=== PATIENT | female | born 1940 | race Caucasian/White ===

== ENCOUNTER → 2018-06-21 | Outpatient (CLI) | payer MEDICARE, OTHER, SELFPAY ==
[2018-03-29 15:36] VITALS: BMI 24.5
--- NOTE | 2018-06-21 14:58 | BI_ITS ---
MAMMOGRAPHY - BILATERAL SCREENING REASON FOR EXAM: Female, 77 years old. Routine annual screening examination. PERTINENT HISTORY: Grandmother with breast cancer. TECHNIQUE: Digital bilateral breast christiano (3D mammographic acquisition) in the CC and MLO projections. 2-D mediolateral oblique (MLO) and craniocaudad (CC) views of both breasts were obtained. CAD: Full Field Digital Mammography with Computer Added Detection was performed. COMPARISON: Comparison is made with prior examination dated January 20, 2017 the and December 18, 2015. FINDINGS: Breast Composition: There are scattered areas of fibroglandular density. There now is evidence of a 1.3 cm x 1.3 cm spiculated nodule in the mid medial portion of the left breast. Correlation with ultrasound is recommended. No other significant abnormalities are identified. BI/SCREENING MAMM (CAD), BILAT IMPRESSION: 1.3 cm x 1.3 cm spiculated nodule in the mid medial portion of the left breast as described. Correlation with ultrasound is recommended. ASSESSMENT CATEGORY: BIRADS Category 0: Incomplete. Need additional imaging evaluation. A letter regarding these results will be sent to the patient by the facility within 30 days. Approximately 10% of breast cancers are not detected by mammography. A normal mammogram should not delay biopsy of a clinically suspicious abnormality. [id number] Electronically Signed: Anthony Ashton, at 11:26 EDT , Service support ,
== END | disposition home or self-care (01) ==
LOC: OPBI 14:54
PROVIDERS: Family Provider Internal Medicine; PCP Internal Medicine; Referring Provider Nurse Practitioner Women's Health; Visit Provider Nurse Practitioner Women's Health
DX: Z12.31 Encounter for screening mammogram for malignant neoplasm of breast (principal)
CPT/HCPCS: 77063; 77067

== ENCOUNTER → 2018-06-23 | Outpatient (CLI) | payer MEDICARE, OTHER, SELFPAY ==
[2018-03-29 15:36] VITALS: BMI 24.5
--- NOTE | 2018-06-23 12:24 | US_ITS ---
STUDY: ULTRASOUND BREAST - LEFT REASON FOR EXAM: Female, 77 years old. Abnormal screening mammogram. TECHNIQUE: Axial and longitudinal images of the LEFT breast were performed with a high resolution ultrasound transducer. COMPARISON: Comparison is made with prior mammogram dated June 21, 2018. FINDINGS: LEFT Breast: The mammographic abnormality corresponds to a 9 mm x 8 mm x 6 mm irregular hypoechoic solid nodule at the 10:00 position of the breast at 3 cm from the nipple. A biopsy is recommended. US/Breast Limited Unilateral IMPRESSION: Suspicious nodule at the 10:00 position of the breast at 3 cm from the nipple. Biopsy is recommended. ASSESSMENT CATEGORY: BIRADS Category 5: Highly Suggestive of Malignancy - Appropriate Action Should Be Taken. A letter regarding these results will be sent to the patient by the facility within 30 days. Electronically Signed: Anthony Ashton, at 14:03 EDT , Service support ,
== END | disposition home or self-care (01) ==
LOC: OPUS 12:23
PROVIDERS: Family Provider Internal Medicine; PCP Internal Medicine; Referring Provider Nurse Practitioner Women's Health; Visit Provider Nurse Practitioner Women's Health
DX: R92.8 Other abnormal and inconclusive findings on diagnostic imaging of breast (principal); N63.20 Unspecified lump in the left breast, unspecified quadrant
CPT/HCPCS: 76642

== ENCOUNTER → 2018-06-24 | Outpatient (CLI) | payer MEDICARE, OTHER, SELFPAY ==
--- NOTE | 2018-06-24 | IMM_PTH ---
PATIENT: JORDAN LAMBERT LOC: [facility] U#:[id number] AGE/SX: 77/F ROOM: RE06/24/[address]: Dr. Rahul Tucker MD : 1940 BED: DIS: 06/24/2018 SPEC #: [id number] RECD: 06/25/18 13:03 STATUS: TI RENed #: [id number] EDIN: 06/24/18 00:[address]: Rahul Tucker DEPT: IMMUNOHISTOCHEMISTRY RECD BY: Rosa Simms ENTERED: 06/25/18 13:04 SP TYPE: IMMUNO OTHR DR: Dr. Eloise Palma MD Tissues: Left breast, NOS Procedures: CALPONIN-1 (add) CK5-6 (add) CK8 (add) E-CAD (add) HER2 MAT (add) KI-67 (add) P53 (add) TX (add) P40 (add) ER (initial) PHYSICIAN & INSTITUTION [address] [address] SPECIMEN INFORMATION: Tissue Source: Left breast biopsy Clinical Info: Abnormal left breast ultrasound Specimen Number: [id number] CPT code: 98486, 44731 x6, 91495 x3 METHODOLOGY: Deparaffinized sections of prefer/formalin-fixed tissue or PAP/DQ stained slides are incubated with monoclonal/polyclonal antibodies/oligonucleotide probes. Localization is made via biotin free immunoperoxidase method. Appropriate controls are performed and reacted as expected. Results on target cell population are indicated in the following table: RESULTS: ANTIBODY / CLONE RESULT E-Cad (ECH-6) positive CK8 (16dfqnP77) positive CK5-6 (D5 & 1684) negative * Ki-67 (30-9) positive, low P53 (DO-7) positive P40 (BC28) negative * Calponin-1 (NA952M) negative * *?Positive in ductal carcinoma in situ. MORPHOMETRIC ANALYSIS ER (clone 6F11) >95%, strong TX (clone 16/1E2) 51%, weak to moderate Her-2Neu (clone CB11) 0-1+ The prognostic test for HER2 is performed on formalin-fixed paraffin embedded tissue. A 3+ (positive) staining pattern is defined as intense, homogeneous, complete, circumferential membranous staining in >10% of contiguous tumor cells. A similar weak (2+) staining pattern is interpreted as equivocal. ALEX follow-up testing is recommended for all equivocal cases. Positivity/negativity for ER/TX is reported if > or < 1% of the tumor cells are immuno- reactive, respectively. The ASCO/CAP criteria is used for scoring. Reference: Journal of Clinical Oncology, 2013; 31:1211-5860 & 2010; 16:4379-7160. Duration of fixation: 10.5 Hrs; Sample Adequate: Yes. These assays have not been validated on decalcified tissues. Results should be interpreted with caution given the likelihood of false negativity on decalcified specimens. These tests were developed and their performance characteristics determined by [facility]. They may not have been cleared or approved by the U.S. Food and Drug Administration. The FDA has determined that such clearance or approval is not necessary. INTERPRETATION: Left breast, core biopsy: Invasive ductal carcinoma, nuclear grade 1. Positive for estrogen receptors (favorable prognostic indicator). Positive for progesterone receptors (favorable prognostic indicator). Negative for overexpression of TVQ7agk. SJ:marcus 06/28/18
[2018-06-24 08:50] VITALS: BMI 24.5
--- NOTE | 2018-06-24 09:00 | BRBX_PTH ---
PATIENT: JORDAN LAMBERT LOC: [facility] U#:[id number] AGE/SX: 77/F ROOM: RE06/24/[address]: Dr. Rahul Tucker MD : 1940 BED: DIS: 06/24/2018 SPEC #: [id number] RECD: 06/24/18 10:04 STATUS: TI MICHELLE #: [id number] EDIN: 06/24/18 09:[address]: Rahul Tucker DEPT: SURGICAL PATHOLOGY RECD BY: Jimmie Vides ENTERED: 06/24/18 11:28 SP TYPE: BREAST BX OTHR DR: MD Tosha Duran, HENRIQUE Tissues: Left breast, NOS Procedures: Surgery Specimen Level IV HEADER OPERATION: Left breast biopsy PRE-OP DIAGNOSIS: Abnormal left breast ultrasound TISSUE SUBMITTED: Left breast tissue ISCHEMIC TIME: <1 minute FIXATION TIME: 10.5 hours MICROSCOPIC DIAGNOSIS Left breast, core biopsy: Invasive ductal carcinoma, nuclear grade 1 (0.7 cm in greatest length). Focal ductal carcinoma in situ. See comment. DIEGO:marcus 06/25/18 COMMENT Ductal carcinoma in situ shows cribriform and solid pattern, intermediate nuclear grade and focal comedo necrosis and comprise about 5-10% of the total tumor volume. Immunohistochemistry ([id number]) supports the above diagnosis. ER/NV/Axi4zdx studies are being performed on sections of tumor and the results from this study will be reported separately ([id number]). MICROSCOPIC DESCRIPTION Slides are reviewed. GROSS DESCRIPTION Received in fixative is one container labeled with the patient's name and designated left breast biopsy. The specimen consists of multiple elongated fragments of jacinto-yellow hemorrhagic tissue that in aggregate measure 1.5 x 0.3 x 0.1 cm. The entire specimen is submitted in one cassette. / DIEGO:amrcus 06/24/18 TC:0 CPT: 66101
== END | disposition home or self-care (01) ==
LOC: LABSPEC 10:10
PROVIDERS: Family Provider Internal Medicine; PCP Internal Medicine; Referring Provider Surgery; Visit Provider Surgery
DX: C50.912 Malignant neoplasm of unspecified site of left female breast (principal)
CPT/HCPCS: 88305; 88341; 88342

== ENCOUNTER 2018-07-08 08:17 | Day surgery (SDC) | payer MEDICARE, OTHER, SELFPAY ==
--- NOTE | 2018-06-24 10:11 | HP_ITS ---
Intake Vital Signs 06/24/18 Body Mass Index (BMI) 24.5 06/24/18 Height 5 ft 2 in 06/24/18 Weight: 135 lb 06/24/18 Body Mass Index (BMI) 24.7 06/24/18 Blood Pressure 168/78 H 06/24/18 Blood Pressure Location Rt brachial 06/24/18 Blood Pressure Position Sitting 06/24/18 Respiratory Rate 18 06/24/18 Pulse Rate 85 06/24/18 Pulse Source Monitor 06/24/18 Temperature 98.3 F 06/24/18 Temperature Source Oral 06/24/18 Pulse Ox 96 06/24/18 Oxygen Delivery Method room air Intake Visit Reasons: Lt Breast Birads 5 Hooker Machine Tender Required: No Is patient in pain?: No Allergies adhesive tape Allergy (Severe, Verified 06/24/18 08:49) Unknown baclofen Allergy (Severe, Verified 06/24/18 08:49) Unknown codeine Allergy (Severe, Verified 06/24/18 08:49) Unknown morphine Allergy (Severe, Verified 06/24/18 08:49) Unknown Penicillins Allergy (Severe, Verified 06/24/18 08:49) Unknown Medications coenzyme Q10 30 mg capsule 30 mg PO QDAY 05/12/17 [History Confirmed 06/24/18] dextran 70-hypromellose (PF) 0.1 %-0.3 % eye drops in a dropperette 1 drp OPHTHALMIC 6XD ea 05/12/17 [History Confirmed 06/24/18] diltiazem ER 180 mg capsule,24 hr,extended release 180 mg PO QDAY cap 05/12/17 [History Confirmed 06/24/18] flaxseed oil 1,000 mg capsule 1,000 mg PO QDAY 05/12/17 [History Confirmed 06/24/18] rosuvastatin 10 mg tablet 10 mg PO QDAY 05/12/17 [History Confirmed 06/24/18] epinephrine 0.3 mg/0.3 mL injection, auto-injector 0.3 mg IM ONCE #1 ea 08/13/17 [Rx Confirmed 06/24/18] prednisone 5 mg tablet See Rx Instructions PO DAILY #20 tab 12/24/17 [Rx Confirmed 06/24/18] PFSH Medical History Abnormal mammogram of left breast (Acute) Abnormal mammogram of left breast (Acute) Anxiety (Acute) Arthritis (Acute) Asthma (Acute) High cholesterol (Acute) Hives (Acute) IBS (irritable bowel syndrome) (Acute) Osteoarthritis (Acute) Pneumonia (Acute) Skin cancer (Acute) HTN (hypertension) (Chronic) Surgical History Status post bilateral total hip replacement (Acute) Family History Father Colon cancer Mother Cancer Melanoma ALS (amyotrophic lateral sclerosis) Social History Smoking Status: Never smoker second hand exposure: No alcohol intake: never substance use type: does not use HPI HPI HPI: JORDAN LAMBERT, is a 77 F who presents to the office today for HPI HPI Surgical H&P: Yes HPI: JORDAN LAMBERT, is a 77 F who presents to the office today for surgical consultation regarding a abnormal left breast mammogram and ultrasound 77-year-old female. G3, . Menarche was at age 15. First child was born when she was 20. She did not breast-feed. No history of previous breast biopsy. She has not been on estrogen replacement therapy but she does use as needed Vagifem. Family history notable for a paternal grandmother had breast cancer. The patient has not had any symptoms. No breast pain. No nipple discharge. At the [facility] on June 21, 2018 she had screening bilateral mammography. There is felt to be a 1.3 x 1.3 cm spiculated nodule mid medial portion of the left breast. BI-RADS Category 0. Subsequently on June 23, 2018 a left breast ultrasound was obtained. BI-RADS Category 5. A 9 x 8 x 6 mm hypoechoic solid nodule 10 o'clock position +3 cm left breast. The patient is been kindly evaluated by Tosha Abdi, SARKIS?C. She is referred for surgical consultation and a written surgical consult with recommendations will be returned to her. [facility] Imaging Services [address] [place] [address] SCREENING MAMM (CAD), BILAT MR#: [id number] Name: JORDAN LAMBERT [facility] #:[id number] : 1940 77 From: Anthony Ashton MD PCP:Eloise Palma MD Status:REG CLI Study:SCREENING MAMM (CAD), BILAT Date of Exam:06/21/18 Exam#[id number] Ordering Dr: Tosha Abdi STAPLE FIBER WASHER-Jorge MAMMOGRAPHY - BILATERAL SCREENING REASON FOR EXAM: Female, 77 years old. Routine annual screening examination. PERTINENT HISTORY: Grandmother with breast cancer. TECHNIQUE: Digital bilateral breast christiano (3D mammographic acquisition) in the CC and MLO projections. 2-D mediolateral oblique (MLO) and craniocaudad (CC) views of both breasts were obtained. CAD: Full Field Digital Mammography with Computer Added Detection was performed. COMPARISON: Comparison is made with prior examination dated January 20, 2017 the and December 18, 2015. FINDINGS: Breast Composition: There are scattered areas of fibroglandular density. There now is evidence of a 1.3 cm x 1.3 cm spiculated nodule in the mid medial portion of the left breast. Correlation with ultrasound is recommended. No other significant abnormalities are identified. BI/SCREENING MAMM (CAD), BILAT IMPRESSION: 1.3 cm x 1.3 cm spiculated nodule in the mid medial portion of the left breast as described. Correlation with ultrasound is recommended. ASSESSMENT CATEGORY: BIRADS Category 0: Incomplete. Need additional imaging evaluation. A letter regarding these results will be sent to the patient by the facility within 30 days. Approximately 10% of breast cancers are not detected by mammography. A normal mammogram should not delay biopsy of a clinically suspicious abnormality. [id number] Electronically Signed: Anthony Ashton, at 11:26 EDT , Service support , [facility] Imaging Services [address] [place] [id number] Breast Limited Unilateral MR#: [id number] Name: JORDAN LAMBERT [facility] #:[id number] : 1940 77 From: Anthony Ashton MD PCP:Eloise Palma MD Status:REG CLI Study:Breast Limited Unilateral Date of Exam:06/23/18 Exam#[id number] Ordering Dr: Tosha Abdi STAPLE FIBER WASHER-C STUDY: ULTRASOUND BREAST - LEFT REASON FOR EXAM: Female, 77 years old. Abnormal screening mammogram. TECHNIQUE: Axial and longitudinal images of the LEFT breast were performed with a high resolution ultrasound transducer. COMPARISON: Comparison is made with prior mammogram dated June 21, 2018. FINDINGS: LEFT Breast: The mammographic abnormality corresponds to a 9 mm x 8 mm x 6 mm irregular hypoechoic solid nodule at the 10:00 position of the breast at 3 cm from the nipple. A biopsy is recommended. US/Breast Limited Unilateral IMPRESSION: Suspicious nodule at the 10:00 position of the breast at 3 cm from the nipple. Biopsy is recommended. ASSESSMENT CATEGORY: BIRADS Category 5: Highly Suggestive of Malignancy - Appropriate Action Should Be Taken. A letter regarding these results will be sent to the patient by the facility within 30 days. Electronically Signed: Anthony Ashton, at 14:03 EDT , Service support , ROS General General: No weight change, appetite, fatigue, colon cancer, breast cancer or weakness HEENT HEENT: Yes eye surgery; no difficulty swallowing, eye injury, swollen glands or hoarseness Endo Endocrine: No thyroid disease, diabetes mellitus, thyroid cancer, Hair loss, heat intolerance or cold intolerance Skin Skin: No rash or changing moles Breast Breast: Yes abnormal mammogram and abnormal US; no left breast lump, right breast lump, nipple discharge, breast pain or breast enlargement Musc Musculoskeletal: Yes arthritis; no back problems, rheumatoid arthritis, gout or joint pain Cardio Cardiovascular: Yes high blood pressure; no murmur, pacemaker, heart disease, atrial fibrillation, heart attack, heart stent, palpitations, shortness of breat with exertion or chest pain Psych Psychiatric: No depression, anxiety or hearing voices Resp Respiratory: No shortness of breath, No sleep apnea, No cough, No COPD, Yes asthma, No emphysema, No wheezing Gastro Gastrointestinal: No abdominal pain, No nausea or vomiting, No diarrhea, No constipation, No blood in stool, Yes acid reflux, Yes hemorrhoids, No ulcers, No gallbladder problem, No black,tarry stools Ghulam Hematologic: No blood thinners, No blood disorders, No bleeding, No anemia, No blood clots Neuro Neurologic: No system reviewed and no additional complaints, except as docu, No as per HPI, No abnormal walking, No abnormal hearing, No abnormal movements, No abnormal speech, No behavioral changes, No burning sensations, No confusion, No seizure-like activity, No unsteadiness, No dizziness, No localized weakness, No frequent falls, No headache(s), No lack of coordination, No loss of vision, No memory loss, No numbness, No other visual disturbances, No radiating pain, No restless legs, No sensory deficit, No fainting, No tingling, No tremor(s), No weakness, No other Exam Const General: cooperative, healthy appearing, comfortable, no acute distress Nutritional Appearance: overweight Orientation: alert, awake [facility] Head: normal to inspection Eyes General: appearance normal, both eyes and all related structures Chest Breast Palpation: No nipple discharge Other: Right breast: No focal mass. No nipple discharge. No axillary or clavicular adenopathy Left breast: No focal mass. No nipple discharge. No focal mass. No axillary or clavicular adenopathy Resp Effort & Inspection: normal respiratory effort Auscultation: clear to auscultation bilaterally Cardio Rate: regular rate Rhythm: regular rhythm Heart Sounds: no murmurs GI Palpation: soft, no hepatosplenomegaly Musc Cervical Spine: normal cervical lordosis Neuro General: alert Extrem General: no calf tenderness bilaterally Psych Affect: normal affect Office Procedures Biopsy Provider Documentation Ultrasound-guided needle core biopsy upper inner left breast 10 o'clock position +3 cm Timeout and informed consent was obtained. 7-year-old female was taken to the procedure room placed upon the table. The upper inner left breast was sterilely prepped draped. 1% lidocaine mixed 50-50 with 0.5% Marcaine was used as a local anesthetic. Throughout the procedure a total of 9 cc was used. A small stab incision was created. Under ultrasound guidance a Monopty needle was advanced to the lesion. 4 separate cores were obtained. A marking clip was left in position. She tolerated the procedure well. Pressure is held for hemostasis. Steri-Strip Telfa OpSite dressing applied. The specimens were immediately transported to formalin for analysis. Office follow-up as scheduled. Rahul Tucker M.D., F.A.C.S. Alert Credit Union Examiner Yes Biopsy Breast Biopsy: [id number] US Guidance Procedure Time Out Time Out Informed consent given: Yes Consent signed: Yes Time out checklist: patient, procedure, site marked/identified, positioning of patient, supplies available, allergies confirmed, team agrees on procedure Time out staff in room: Yes Time out verified: Yes Time out date: 06/24/18 Time out time: 09:04 Assessment & Plan Problems 1. Abnormal mammogram of left breast R92.8 Plan 77-year-old female. She has a highly suspicious upper inner left breast mammogram and ultrasound 10 o'clock position +3 cm with a BI-RADS Category 5 9 x 8 x 6 mm lesion. I did recommend to her an ultrasound-guided needle core biopsy of this area and I discussed technique, benefit, risk and alternatives. She has had an opportunity to ask and have questions answered. She is accompanied by her today. At her discretion we did proceed with ultrasound-guided needle core biopsy today. We will have her return the office as soon as feasible pending pathology. The patient is aware that I am anticipating that this likely is a malignancy and that I will be recommending definitive surgical treatment. She has had an opting to ask and have questions answered and is comfortable with this approach. I appreciate the ongoing opportunity of assisting with her surgical care. CC: Tosha Abdi CNP and Dr. Eloise Tucker M.D., F.A.C.S. Orders Orders: Biopsy Today R92.8 Coding Level of Care Code Detailed, Low Diagnoses Abnormal mammogram of left breast R92.8 Additional Codes Biopsy - Breast Biopsy: 85017 Guidance (59935) 06/24/18 1011 <Electronically signed by Rahul Tucker MD> Date Rahul Tucker MD
[2018-06-28 14:47] VITALS: BMI 24.5
[2018-07-05 11:17] LABS: Hematocrit 43.7 % (37-47); Hemoglobin 14.4 g/dl (12.0-15.0); Mean Corpuscular Hgb 30.8 pg (27.0-32.0); Mean Corpuscular Volume 93.4 fL (81-99); Platelet Count 230 K/mm3 (150-450); RBC Distribution Width CV 13.9 % (11.6-14.6); RBC Distribution Width SD 46.1 fl (35.1-43.9); Red Blood Count 4.68 M/mm3 (4.2-5.4); White Blood Count 6.8 K/mm3 (4.4-11.0)
[2018-07-05 11:19] LABS: Scan Indicated on CBC? Y/N NO
[2018-07-05 11:47] LABS: ALB/GLOB Ratio 1.1 RATIO (0.9-2.4); AST(SGOT) 20 U/L (15-37); Alanine Aminotransfer ALT/SGPT 22 U/L (13-56); Albumin, Serum 3.8 g/dL (3.2-5.0); Alkaline Phosphatase 99 U/L (45-117); Anion Gap 7 (5-15); BUN 17 mg/dL (7-18); BUN/Creat Ratio 26.6 RATIO (10-20); Calcium,Total 9.4 mg/dL (8.5-10.1); Chloride 107 mmol/L (98-107); Creatinine, Serum 0.64 mg/dL (0.55-1.02); EST Glomerular Filtration Rate 95 mL/min (>60); Est Glom Filt Rate - Afr Amer 115 mL/min (>60); Globulin 3.5 g/dL (2.2-4.2); Glucose 89 mg/dL (74-106); Potassium 4.1 mmol/L (3.5-5.1); Protein, Total 7.3 g/dL (6.4-8.2); Sodium Level 143 mmol/L (136-145)
--- NOTE | 2018-07-05 13:55 | RAD_ITS ---
STUDY: X-RAY CHEST REASON FOR EXAM: Female, 77 years old. Preop for pelvic surgery TECHNIQUE: PA and lateral views of the chest. COMPARISON: No recent studies FINDINGS: There are interstitial fibrotic changes of the lungs. There is no demonstrated pleural abnormality. Normal size heart. Normal mediastinum and donald. Normal visualized pulmonary arteries. Normal visualized aortic arch and descending thoracic aorta. Normal visualized thoracic spine. Normal visualized ribs, clavicles, and shoulders. There is no demonstrated abnormality of the visualized soft tissue structures of the upper abdomen. RAD/Chest PA and Lateral IMPRESSION: Chronic interstitial changes, no superimposed acute pulmonary process Electronically Signed: Porfirio Potter MD at 14:20 EDT , Service support ,
--- NOTE | 2018-07-05 14:11 | EKG12_ITS ---
Test Reason : PRE-OP Blood Pressure : / mmHG Vent. Rate : 064 BPM Atrial Rate : 064 BPM P-R Int : 150 ms QRS Dur : 086 ms QT Int : 396 ms P-R-T Axes : 026 002 056 degrees QTc Int : 408 ms Normal sinus rhythm Normal ECG Confirmed by MYKE OROZCO, ISABELL ([id number]), commercial production editor ISIDRO SUERO ([id number]) on 07/06/2018 9:15:36 AM Referred By: Rahul Tucker Confirmed By:ISABELL STRINGER MD
--- NOTE | 2018-07-08 | AXNB_PTH ---
PATIENT: JORDAN LAMBERT LOC: [facility] [place] U#:[id number] AGE/SX: 77/F ROOM: RE07/08/[address]: Dr. Rahul Tucker MD : 1940 BED: DIS: 07/08/2018 SPEC #: [id number] RECD: 07/08/18 12:11 STATUS: TI MICHELLE #: [id number] EDIN: 07/08/18 00:[address]: Rahul Tucker DEPT: SURGICAL PATHOLOGY RECD BY: Rosa Simms ENTERED: 07/08/18 13:07 SP TYPE: AX NODE BX OTHR DR: Dr. 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 Left axillary sentinel lymph nodes, biopsy: Two out of two lymph nodes negative for carcinoma. AM:marcus 07/08/18 MICROSCOPIC DIAGNOSIS A. Left axillary sentinel lymph nodes, biopsy: Two out of two lymph nodes negative for carcinoma. See comment. B. Left breast, lumpectomy: Invasive ductal carcinoma. See cancer checklist below. C. New inferior margin, biopsy: Focal ductal carcinoma in situ. Fibrocystic change and adenosis. 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 See comment. AM:marcus 07/13/18 COMMENT A. Immunohistochemistry ([id number]) supports the above diagnosis. B. INVASIVE BREAST CANCER SUMMARY: Specimen: Partial breast Procedure: Excision with wire guidance Specimen integrity: Single intact specimen. Specimen size: 6 x 3.5 x 2.8 cm Specimen laterality: Left breast Tumor size: 1.2 x 1 x 1 cm Tumor focality: Single focus of invasive carcinoma Macroscopic and Microscopic extent of tumor: Skin: Not present Nipple: Not present Skeletal muscle: Not present Histologic type of invasive carcinoma: Invasive ductal carcinoma Histologic Grade ([place] grade): Glandular/tubular differentiation score: 3 Nuclear pleomorphism score: 3 Mitotic count score: 1 Overall grade: Grade 2 (total score of 7) Margins: Uninvolved by invasive carcinoma. Distance from closest (inferior) margin - <1 mm Lymph-Vascular invasion: Not identified Dermal lymph-vascular invasion: Not applicable Ductal carcinoma in situ (DCIS): DCIS is present Estimated % of carcinoma - 50% of total tumor volume Number of blocks with DCIS: 10 Number of blocks examined: 10 Architectural patterns: Solid and comedo Nuclear grade: 3/3 (high grade) Necrosis: Present, multifocal EIC: Present Lobular carcinoma in situ (LCIS): Not present Lymph nodes: Number of sentinel lymph nodes examined: 2 Total number of lymph nodes examined (sentinel and nonsentinel): 2 No evidence of macrometastases, micrometastases or isolated tumor cells. See specimen A Microcalcifications: Present in carcinoma and in non-neoplastic tissue Treatment effect: No known presurgical therapy Additional pathologic findings: Previous biopsy, intraductal hyperplasia with focal atypical intraductal hyperplasia, fibrocystic change and microcalcifications. Ancillary studies: Previously performed on same tumor ([id number] / [id number]). ER: positive, >95%, strong IL: 51%, Weak to moderate Her2 markus: negative, 0-1% ([facility]) Her2 by dual ALEX: Not performed PATHOLOGIC STAGE: pT1c N0 Mx The above summary is in compliance with [employer] (CAP) Cancer Protocols Checklist and [place] Joint Committee on Cancer (AJCC), Staging Manual, 8th Ed. C. There is focal ductal carcinoma in situ measuring approximately 1 mm. This carcinoma is located 1.5 mm from the new inked margin of excision. Invasive carcinoma in this new margin biopsy is not identified. Case has been reviewed in consultation with Dr. Weston who concurs with the above diagnosis. IDC:CE MICROSCOPIC DESCRIPTION Slides are reviewed. GROSS DESCRIPTION A - Received fresh for frozen section consultation labeled with the patient's name is a specimen designated sentinel lymph node, left breast. The specimen consists of an irregular fragment of jacinto-yellow fatty tissue measuring 2.5 x 1.5 x 0.8 cm. Dissection reveals two nodules with sentinel lymph nodes measuring 1 cm in greatest dimension. The lymph nodes are bisected and submitted for frozen section consultation in two blocks as follows: 1 - one lymph node, bisected, 2 - one lymph node, bisected. / AM: 07/08/18 B Received fresh for OR consultation labeled with the patient's name is a specimen designated upper breast lumpectomy. The specimen consists of an oriented fragment of jacinto-yellow fibrofatty measuring 6 x 3.5 x 2.8 cm and weighing 22.3 gm and containing a wire. The specimen is differentially inked as follows: anterior - yellow, posterior - black, superior - blue, inferior - green, medial - red and lateral - orange. Serial sections reveal a firm, jacinto-white mass measuring 1.2 x 1 x 1 cm extending to the inked superior margin of excision. Adjacent to this is a blood-filled biopsy cavity measuring 4 x 1.3 cm. The size of the lesion and its relationship to the closest margin is conveyed to the surgeon intraoperatively. Wire Steward sections are submitted as follows: 1 & 2 - perpendicular inked margins, 3-6 - tumor, 7 & 8 - biopsy cavity, 9-12 - uninvolved breast parenchyma adjacent to and away from lesion. / AM: 07/09/18 C - Received in fixative is one container labeled with the patient's name and designated new inferior margin. The specimen consists of an irregular fragment of oriented jacinto-yellow fibrofatty tissue measuring 4 x 3.5 x 2 cm. The surface designated as true margin is inked in black ink. The specimen is serially sectioned to reveal yellow cut surfaces. No mass lesion is identified. The entire surface of the new margin is submitted in four cassettes. / AM: 07/09/18 TC:0 CPT: 77702 x2, 35100, 19303, 02412, 39049 ADDENDUM ADDENDUM ADDENDUM ADDENDUM ADDENDUM ADDENDUM ADDENDUM ADDENDUM 08/06/2018 10:04 ADDENDUM 08/06/2018 10:04 ADDENDUM 08/06/2018 10:04 ADDENDUM 08/06/2018 10:04 ADDENDUM 08/06/2018 10:04 An order for Oncotype testing was received from Dr. Ochoa. This necessitated case review, block and slide selection by pathologist at [facility]. Breast Cancer Recurrence Score = 16 Results of the complete Oncotype testing ([facility] report) are viewable in EMR under: Reports - Pathology - Lab Pathology Report, Scanned.
--- NOTE | 2018-07-08 | IMM_PTH ---
PATIENT: JORDAN LAMBERT LOC: [facility] [place] U#:[id number] AGE/SX: 77/F ROOM: RE07/08/[address]: Dr. Rahul Tucker MD : 1940 BED: DIS: 07/08/2018 SPEC #: [id number] RECD: 07/12/18 14:14 STATUS: TI REQ #: [id number] EDIN: 07/08/18 00:[address]: Rahul Tucker DEPT: IMMUNOHISTOCHEMISTRY RECD BY: Rosa Simms ENTERED: 07/12/18 14:15 SP TYPE: IMMUNO OTHR DR: Dr. Eloise Palma MD Tissues: A - Axillary lymph node, NOS Procedures: CK8 (add) Pankeratin (initial) Pankeratin (add) PHYSICIAN & INSTITUTION [place] [id number] SPECIMEN INFORMATION: Tissue Source: A - Left axillary sentinel lymph nodes biopsy Clinical Info: Invasive ductal carcinoma Specimen Number: [id number] A1 & A2 CPT code: 23144, 23873 x3 METHODOLOGY: Deparaffinized sections of prefer/formalin-fixed tissue or PAP/DQ stained slides are incubated with monoclonal/polyclonal antibodies/oligonucleotide probes. Localization is made via biotin free immunoperoxidase method. Appropriate controls are performed and reacted as expected. Results on target cell population are indicated in the following table: RESULTS: ANTIBODY / CLONE RESULT Block A1 AE1-3 (AE1/AE3/PCK26) negative CK8 ([id number]) negative Block A2 AE1-3 (AE1/AE3/PCK26) negative CK8 ([id number]) negative These tests were developed and their performance characteristics determined by [facility]. They may not have been cleared or approved by the [place]. Food and Drug Administration. The FDA has determined that such clearance or approval is not necessary. INTERPRETATION: A. Left axillary sentinel lymph nodes, biopsy: Two out of two lymph nodes negative for carcinoma. AM:marcus 07/13/18
--- NOTE | 2018-07-08 05:56 | PCM.HP.BLA ---
Problem List (1) Breast cancer, left Status: Acute Qualifiers: Breast location: upper inner quadrant of breast Estrogen receptor status: positive Patient sex: female Qualified Code(s): C50.212 - Malignant neoplasm of upper-inner quadrant of left female breast; Z17.0 - Estrogen receptor positive status [ER+] History and Physical Date of Admission: 07/08/18 Intake Vital Signs 06/28/18 Body Mass Index (BMI) 24.5 Intake Visit Reasons: F/U Breast BX 5/2 Lt Breast Birads 5 Chief Complaint: Vaginal Irritation Bread Wrapping Machine Feeder Required: No Is patient in pain?: No Allergies adhesive tape Allergy (Severe, Verified 06/24/18 08:49) Unknown baclofen Allergy (Severe, Verified 06/24/18 08:49) Unknown codeine Allergy (Severe, Verified 06/24/18 08:49) Unknown morphine Allergy (Severe, Verified 06/24/18 08:49) Unknown Penicillins Allergy (Severe, Verified 06/24/18 08:49) Unknown Medications coenzyme Q10 30 mg capsule 30 mg PO QDAY 05/12/17 [History Confirmed 06/28/18] dextran 70-hypromellose (PF) 0.1 %-0.3 % eye drops in a dropperette 1 drp OPHTHALMIC 6XD ea 05/12/17 [History Confirmed 06/28/18] diltiazem ER 180 mg capsule,24 hr,extended release 180 mg PO QDAY cap 05/12/17 [History Confirmed 06/28/18] flaxseed oil 1,000 mg capsule 1,000 mg PO QDAY 05/12/17 [History Confirmed 06/28/18] rosuvastatin 10 mg tablet 10 mg PO QDAY 05/12/17 [History Confirmed 06/28/18] epinephrine 0.3 mg/0.3 mL injection, auto-injector 0.3 mg IM ONCE #1 ea 08/13/17 [Rx Confirmed 06/28/18] prednisone 5 mg tablet See Rx Instructions PO DAILY #20 tab 12/24/17 [Rx Confirmed 06/28/18] [facility] Medical History Breast cancer, left (Acute) Abnormal mammogram of left breast (Acute) Abnormal mammogram of left breast (Acute) Anxiety (Acute) Arthritis (Acute) Asthma (Acute) Breast cancer, left (Acute) High cholesterol (Acute) Hives (Acute) IBS (irritable bowel syndrome) (Acute) Osteoarthritis (Acute) Pneumonia (Acute) Skin cancer (Acute) HTN (hypertension) (Chronic) Surgical History History of basal cell carcinoma (BCC) excision (Acute) Status post bilateral total hip replacement (Acute) Family History Father Colon cancer Mother Cancer Melanoma ALS (amyotrophic lateral sclerosis) Social History Smoking Status: Never smoker second hand exposure: No alcohol intake: never substance use type: does not use HPI HPI HPI: JORDAN LAMBERT, is a 77 F who presents to the office today for HPI HPI Surgical H&P: Yes HPI: JORDAN LAMBERT, is a 77 F who presents to the office today for surgical follow-up status post her very recent office visit of June 24, 2018 where she underwent a ultrasound-guided needle core biopsy of a abnormal density upper mid left breast. 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 Estrogen receptors greater than 95%. Progesterone receptor is 51%. HER-2/markus was 0-1+. MR#:[id number] Name: JORDAN LAMBERT [facility] #:[id number] : 1940 Provider:Rahul Tucker MD Age/Sex: 77/F Location[place] Status:Signed Intake Vital Signs 06/24/18 Body Mass Index (BMI) 24.5 06/24/18 Height 5 ft 2 in 06/24/18 Weight: 135 lb 06/24/18 Body Mass Index (BMI) 24.7 06/24/18 Blood Pressure 168/78 H 06/24/18 Blood Pressure Location Rt brachial 06/24/18 Blood Pressure Position Sitting 06/24/18 Respiratory Rate 18 06/24/18 Pulse Rate 85 06/24/18 Pulse Source Monitor 06/24/18 Temperature 98.3 F 06/24/18 Temperature Source Oral 06/24/18 Pulse Ox 96 06/24/18 Oxygen Delivery Method room air Intake Visit Reasons: Lt Breast Birads 5 Bread Wrapping Machine Feeder Required: No Is patient in pain?: No Allergies adhesive tape Allergy (Severe, Verified 06/24/18 08:49) Unknown baclofen Allergy (Severe, Verified 06/24/18 08:49) Unknown codeine Allergy (Severe, Verified 06/24/18 08:49) Unknown morphine Allergy (Severe, Verified 06/24/18 08:49) Unknown Penicillins Allergy (Severe, Verified 06/24/18 08:49) Unknown Medications coenzyme Q10 30 mg capsule 30 mg PO QDAY 05/12/17 [History Confirmed 06/24/18] dextran 70-hypromellose (PF) 0.1 %-0.3 % eye drops in a dropperette 1 drp OPHTHALMIC 6XD ea 05/12/17 [History Confirmed 06/24/18] diltiazem ER 180 mg capsule,24 hr,extended release 180 mg PO QDAY cap 05/12/17 [History Confirmed 06/24/18] flaxseed oil 1,000 mg capsule 1,000 mg PO QDAY 05/12/17 [History Confirmed 06/24/18] rosuvastatin 10 mg tablet 10 mg PO QDAY 05/12/17 [History Confirmed 06/24/18] epinephrine 0.3 mg/0.3 mL injection, auto-injector 0.3 mg IM ONCE #1 ea 08/13/17 [Rx Confirmed 06/24/18] prednisone 5 mg tablet See Rx Instructions PO DAILY #20 tab 12/24/17 [Rx Confirmed 06/24/18] PFSH Medical History Abnormal mammogram of left breast (Acute) Abnormal mammogram of left breast (Acute) Anxiety (Acute) Arthritis (Acute) Asthma (Acute) High cholesterol (Acute) Hives (Acute) IBS (irritable bowel syndrome) (Acute) Osteoarthritis (Acute) Pneumonia (Acute) Skin cancer (Acute) HTN (hypertension) (Chronic) Surgical History Status post bilateral total hip replacement (Acute) Family History Father Colon cancer Mother Cancer Melanoma ALS (amyotrophic lateral sclerosis) Social History Smoking Status: Never smoker second hand exposure: No alcohol intake: never substance use type: does not use HPI HPI HPI: JORDAN LAMBERT, is a 77 F who presents to the office today for HPI HPI Surgical H&P: Yes HPI: JORDAN LAMBERT, is a 77 F who presents to the office today for surgical consultation regarding a abnormal left breast mammogram and ultrasound 77-year-old female. G3, . Menarche was at age 15. First child was born when she was 20. She did not breast-feed. No history of previous breast biopsy. She has not been on estrogen replacement therapy but she does use as needed Vagifem. Family history notable for a paternal grandmother had breast cancer. The patient has not had any symptoms. No breast pain. No nipple discharge. At the [facility] on June 21, 2018 she had screening bilateral mammography. There is felt to be a 1.3 x 1.3 cm spiculated nodule mid medial portion of the left breast. BI-RADS Category 0. Subsequently on June 23, 2018 a left breast ultrasound was obtained. BI-RADS Category 5. A 9 x 8 x 6 mm hypoechoic solid nodule 10 o'clock position +3 cm left breast. The patient is been kindly evaluated by Tosha Abdi, SANDWICH BOARD CARRIER?C. She is referred for surgical consultation and a written surgical consult with recommendations will be returned to her. [facility] Imaging Services [address] [place] [address] SCREENING MAMM (CAD), BILAT MR#: [id number] Name: JORDAN LAMBERT [facility] #:[id number] : 1940F 77 From: Anthony Ashton MD PCP:Eloise Palma MD Status:[facility] Study:SCREENING MAMM (CAD), BILAT Date of Exam:06/21/18 Exam#[id number] Ordering Dr: Tosha Abdi NP-C MAMMOGRAPHY - BILATERAL SCREENING REASON FOR EXAM: Female, 77 years old. Routine annual screening examination. PERTINENT HISTORY: Grandmother with breast cancer. TECHNIQUE: Digital bilateral breast christiano (3D mammographic acquisition) in the CC and MLO projections. 2-D mediolateral oblique (MLO) and craniocaudad (CC) views of both breasts were obtained. CAD: Full Field Digital Mammography with Computer Added Detection was performed. COMPARISON: Comparison is made with prior examination dated January 20, 2017 the and December 18, 2015. FINDINGS: Breast Composition: There are scattered areas of fibroglandular density. There now is evidence of a 1.3 cm x 1.3 cm spiculated nodule in the mid medial portion of the left breast. Correlation with ultrasound is recommended. No other significant abnormalities are identified. BI/SCREENING MAMM (CAD), BILAT IMPRESSION: 1.3 cm x 1.3 cm spiculated nodule in the mid medial portion of the left breast as described. Correlation with ultrasound is recommended. ASSESSMENT CATEGORY: BIRADS Category 0: Incomplete. Need additional imaging evaluation. A letter regarding these results will be sent to the patient by the facility within 30 days. Approximately 10% of breast cancers are not detected by mammography. A normal mammogram should not delay biopsy of a clinically suspicious abnormality. [id number] Electronically Signed: Anthony Ashton, at 11:26 EDT , Service support , [facility] Imaging Services [address] [place] [address] Breast Limited Unilateral MR#: [id number] Name: JORDAN LAMBERT [facility] #:[id number] : 1940 77 From: Anthony Ashton MD PCP:Eloise Palma MD Status:REG CLI Study:Breast Limited Unilateral Date of Exam:06/23/18 Exam#[id number] Ordering Dr: Tosha Abdi SANDWICH BOARD CARRIER-C STUDY: ULTRASOUND BREAST - LEFT REASON FOR EXAM: Female, 77 years old. Abnormal screening mammogram. TECHNIQUE: Axial and longitudinal images of the LEFT breast were performed with a high resolution ultrasound transducer. COMPARISON: Comparison is made with prior mammogram dated June 21, 2018. FINDINGS: LEFT Breast: The mammographic abnormality corresponds to a 9 mm x 8 mm x 6 mm irregular hypoechoic solid nodule at the 10:00 position of the breast at 3 cm from the nipple. A biopsy is recommended. US/Breast Limited Unilateral IMPRESSION: Suspicious nodule at the 10:00 position of the breast at 3 cm from the nipple. Biopsy is recommended. ASSESSMENT CATEGORY: BIRADS Category 5: Highly Suggestive of Malignancy - Appropriate Action Should Be Taken. A letter regarding these results will be sent to the patient by the facility within 30 days. Electronically Signed: Anthony Ashton, at 14:03 EDT , Service support , ROS General General: No weight change, appetite, fatigue, colon cancer, breast cancer or weakness HEENT HEENT: Yes eye surgery; no difficulty swallowing, eye injury, swollen glands or hoarseness Endo Endocrine: No thyroid disease, diabetes mellitus, thyroid cancer, Hair loss, heat intolerance or cold intolerance Skin Skin: No rash or changing moles Breast Breast: Yes abnormal mammogram and abnormal US; no left breast lump, right breast lump, nipple discharge, breast pain or breast enlargement Musc Musculoskeletal: Yes arthritis; no back problems, rheumatoid arthritis, gout or joint pain Cardio Cardiovascular: Yes high blood pressure; no murmur, pacemaker, heart disease, atrial fibrillation, heart attack, heart stent, palpitations, shortness of breat with exertion or chest pain Psych Psychiatric: No depression, anxiety or hearing voices Resp Respiratory: No shortness of breath, No sleep apnea, No cough, No COPD, Yes asthma, No emphysema, No wheezing Gastro Gastrointestinal: No abdominal pain, No nausea or vomiting, No diarrhea, No constipation, No blood in stool, Yes acid reflux, Yes hemorrhoids, No ulcers, No gallbladder problem, No black,tarry stools Ghulam Hematologic: No blood thinners, No blood disorders, No bleeding, No anemia, No blood clots Neuro Neurologic: No system reviewed and no additional complaints, except as docu, No as per HPI, No abnormal walking, No abnormal hearing, No abnormal movements, No abnormal speech, No behavioral changes, No burning sensations, No confusion, No seizure-like activity, No unsteadiness, No dizziness, No localized weakness, No frequent falls, No headache(s), No lack of coordination, No loss of vision, No memory loss, No numbness, No other visual disturbances, No radiating pain, No restless legs, No sensory deficit, No fainting, No tingling, No tremor(s), No weakness, No other Exam Const General: cooperative, healthy appearing, comfortable, no acute distress Nutritional Appearance: overweight Orientation: alert, awake [facility] Head: normal to inspection Eyes General: appearance normal, both eyes and all related structures Chest Breast Palpation: No nipple discharge Other: Right breast: No focal mass. No nipple discharge. No axillary or clavicular adenopathy Left breast: No focal mass. No nipple discharge. No focal mass. No axillary or clavicular adenopathy Resp Effort & Inspection: normal respiratory effort Auscultation: clear to auscultation bilaterally Cardio Rate: regular rate Rhythm: regular rhythm Heart Sounds: no murmurs GI Palpation: soft, no hepatosplenomegaly Musc Cervical Spine: normal cervical lordosis Neuro General: alert Extrem General: no calf tenderness bilaterally Psych Affect: normal affect Office Procedures Biopsy Provider Documentation Ultrasound-guided needle core biopsy upper inner left breast 10 o'clock position +3 cm Timeout and informed consent was obtained. 7-year-old female was taken to the procedure room placed upon the table. The upper inner left breast was sterilely prepped draped. 1% lidocaine mixed 50-50 with 0.5% Marcaine was used as a local anesthetic. Throughout the procedure a total of 9 cc was used. A small stab incision was created. Under ultrasound guidance a Monopty needle was advanced to the lesion. 4 separate cores were obtained. A marking clip was left in position. She tolerated the procedure well. Pressure is held for hemostasis. Steri-Strip Telfa OpSite dressing applied. The specimens were immediately transported to formalin for analysis. Office follow-up as scheduled. Rahul Tucker M.D., F.A.C.S. Alert Process Engineering Manager Yes Biopsy Breast Biopsy: [id number] US Guidance Procedure Time Out Time Out Informed consent given: Yes Consent signed: Yes Time out checklist: patient, procedure, site marked/identified, positioning of patient, supplies available, allergies confirmed, team agrees on procedure Time out staff in room: Yes Time out verified: Yes Time out date: 06/24/18 Time out time: 09:04 Assessment & Plan Problems 1. Abnormal mammogram of left breast R92.8 Plan 77-year-old female. She has a highly suspicious upper inner left breast mammogram and ultrasound 10 o'clock position +3 cm with a BI-RADS Category 5 9 x 8 x 6 mm lesion. I did recommend to her an ultrasound-guided needle core biopsy of this area and I discussed technique, benefit, risk and alternatives. She has had an opportunity to ask and have questions answered. She is accompanied by her today. At her discretion we did proceed with ultrasound-guided needle core biopsy today. We will have her return the office as soon as feasible pending pathology. The patient is aware that I am anticipating that this likely is a malignancy and that I will be recommending definitive surgical treatment. She has had an opting to ask and have questions answered and is comfortable with this approach. I appreciate the ongoing opportunity of assisting with her surgical care. CC: Tosha Abdi CNP and Dr. Eloise Tucker M.D., F.A.C.S. Orders Orders: Biopsy Today R92.8 Coding Level of Care Code Detailed, Low Diagnoses Abnormal mammogram of left breast R92.8 Additional Codes Biopsy - Breast Biopsy: [id number] US Guidance ([id number]) 06/24/18 1011<Electronically signed by Rahul Tucker MD> Date Rahul Tucker MD Cosigner Signature:Date (if applicable) CC: SANDWICH BOARD CARRIER Tosha Abdi; Eloise Palma MD ~ ROS General General: No weight change, appetite, fatigue, colon cancer, breast cancer or weakness HEENT HEENT: Yes eye surgery; no difficulty swallowing, eye injury, swollen glands or hoarseness Endo Endocrine: No thyroid disease, diabetes mellitus, thyroid cancer, Hair loss, heat intolerance or cold intolerance Skin Skin: No rash or changing moles Breast Breast: Yes abnormal mammogram and abnormal US; no left breast lump, right breast lump, nipple discharge, breast pain or breast enlargement Musc Musculoskeletal: Yes arthritis; no back problems, rheumatoid arthritis, gout or joint pain Cardio Cardiovascular: Yes high blood pressure; no murmur, pacemaker, heart disease, atrial fibrillation, heart attack, heart stent, palpitations, shortness of breat with exertion or chest pain Psych Psychiatric: No depression, anxiety or hearing voices Resp Respiratory: No shortness of breath, No sleep apnea, No cough, No COPD, Yes asthma, No emphysema, No wheezing Gastro Gastrointestinal: No abdominal pain, No nausea or vomiting, No diarrhea, No constipation, No blood in stool, Yes acid reflux, Yes hemorrhoids, No ulcers, No gallbladder problem, No black,tarry stools Ghulam Hematologic: No blood thinners, No blood disorders, No bleeding, No anemia, No blood clots Neuro Neurologic: No weakness Exam Chest Breast Palpation: No nipple discharge Other: Left breast: Mild ecchymosis upper mid left breast with some slight thickening. Clean incision with no signs of infection Cardio Heart Sounds: no murmurs Assessment & Plan Problems 1. Malignant neoplasm of central portion of left breast in female, estrogen receptor positive C50.112; Z17.0 Plan 9 mm diameter invasive ductal carcinoma upper mid left breast. Estrogen receptor positive. I proposed for her a stereotactic wire localization with wire localized lumpectomy as well as nuclear tracer and blue dye left axillary sentinel lymph node biopsy. In detail I have discussed the technique, benefit, risks, alternatives. I believe that she would be a good candidate for breast conservation surgery. She is aware that radiotherapy will likely be added to her regimen. She is aware that hematology oncology and radiation oncology will be involved with her care. I compared and contrasted this to a left mastectomy. I believe that that degree of would be more than warranted for a 77-year-old female. She is enjoying a good quality of life. She is accompanied by her today. They are a very comfortable proceeding with this as a plan of approach. She has had an opportunity to ask and have questions answered. We will schedule and proceed with definitive surgery. I very much appreciate the kind opportunity of assisting with her surgical care. cc: Tosha Abdi CNP and Dr. Eloise Tucker M.D., F.A.C.S. Coding Level of Care Code Off vis,est,level 3 Diagnoses Malignant neoplasm of central portion of left breast in female, estrogen receptor positive C50.112; Z17.0 ??Breast location: central portion of breast ??Estrogen receptor status: positive ??Patient sex: female 06/28/18 1634 <Electronically signed by Rahul Tucker MD> Date Rahul Tucker MD Cosigner Signature: Date (if applicable) CC: SARKIS Abdi; Eloise Palma MD ~ I have re-examined the patient. There are no clinical changes since date of exam
--- NOTE | 2018-07-08 09:00 | NM_ITS ---
PROCEDURE: NUCLEAR MEDICINE Injection Finley Node - LEFT breast(s). REASON FOR EXAM: Female, 77 years old. Left breast cancer. TECHNIQUE: Finley node localization using radionuclide methods of the LEFT breast(s) was performed following subcutaneous administration of 1.2 mCi of of sulfur colloid Tc-99m. FINDINGS: 1.2 mCi technetium labeled sulfur colloid was injected subcutaneously in 4 equal aliquots at the biopsy site. NM/Lymph Node Injection Only IMPRESSION: 1.2 mCi of technetium labeled sulfur colloid injected subcutaneously at the biopsy site. Electronically Signed: Anthony Ashton, at 12:51 EDT , Service support ,
[2018-07-08 09:03] VITALS: BP 152/67; PULSE 63; RESP 16; TEMP 37.1; O2SAT 96; BMI 24.5
--- NOTE | 2018-07-08 10:10 | BI_ITS ---
SURGICAL BREAST SPECIMEN RADIOGRAPH CLINICAL: Document presence of tissue clip marker in biopsy specimen. FINDINGS: Specimen shows presence of tissue clip marker. Electronically Signed: Anthony Ashton, at 14:22 EDT , Service support , BI/Breast Biopsy Specimen
--- NOTE | 2018-07-08 11:19 | PCM.OPRPT ---
Problem List (1) Breast cancer, left Status: Acute Qualifiers: Breast location: upper inner quadrant of breast Estrogen receptor status: positive Patient sex: female Qualified Code(s): C50.212 - Malignant neoplasm of upper-inner quadrant of left female breast; Z17.0 - Estrogen receptor positive status [ER+] Report of Operation Date of Procedure: 07/08/18 Pre-Operative Diagnosis: Invasive ductal carcinoma upper inner left breast Post-Operative Diagnosis: Same Surgery/Procedure Performed:: Stereotactic wire localization upper inner left breast. Wire localized upper inner left breast lumpectomy with left axillary blue dye and radioactive tracer sentinel lymph node biopsy Description of Surgical Findings:: Timeout and informed consent was obtained. 77-year-old female was taken to the stereotactic unit. She was placed prone on the table. The left breast was placed in the cc view. The marking clip in question was rapidly identified. Stereotactic images were obtained. Digital information was obtained a single target site. The breast was prepped with Betadine. 1% lidocaine was used as a local anesthetic. A Kopan's needle was advanced to a depth +15 mm. The wire was displaced the needle was removed on fast view demonstrated at localization follow-up medial lateral view demonstrated a wire to be past-pointing. [place] to be adequate localization. Sterile dressings were applied. She was subsequently taken to the operating for planned definitive resection. Blood loss minimal. Time out and informed consent was obtained. She was taken the operating placement table underwent general anesthesia. The left arm was wrapped with soft roll and placed at right angles to the table. The left periareolar breast was prepped with alcohol and retroareolar injection was performed with 2 cc of isosulfan blue dye. The left breast and axilla was sterilely prepped draped. Under ultrasound guidance I inspected the tumor area I felt that the stereotactic wire may not be in correct position so under ultrasound guidance I placed a wire into the lesion with a 20-gauge Kopan's needle. I then made an oblique incision in the left axilla sharp dissection carried down through the subcutaneous tissue the lymphatic tracking was identified 2 blue lymph nodes were identified these were resected using hemostasis with hemoclips and electrocautery. Those were sent as sentinel nodes. Based upon the 2 wire location and the hematoma pocket made a transverse slightly curved incision in the upper mid inner left breast sharp dissection carried down through the subcu tissue there was a conglomerate mass associated with the tumor and post intervention hematoma. I used electrocautery to completely excise around this area. I placed a long suture laterally and a short suture superiorly. We then received report that the tumor abutted the inferior margin. So I reexcised the inferior margin and I put a new silk suture at the reexcision area farthest away from the tumor. Hemostasis was intact. I placed 4 small clips to kathy the biopsy resection site. I tried to remodel some of the resected tissue by placing beat deep sutures of interrupted 3-0 Vicryl. The skin edges were approximated running septic or 4-0 Monocryl. The axilla was closed in the same technique. Both wounds were anesthetized with 0.5% Marcaine. A total of 30 cc was used. Steri-Strips and Telfa and OpSite and bulky dry dressings were applied. Sponge and instrument and needle counts were reported the surgeon to be correct. Blood loss was minimal. She tolerated the procedure well and was taken to the recovery area in satisfactory condition without apparent complication. Specimens left axillary sentinel lymph nodes and upper mid left breast mass. Drains none. Blood loss minimal. Rahul Tucker M.D., F.A.C.S. Type of Anesthesia:: General Anesthesiologist: Rizwan Garcia
--- NOTE | 2018-07-08 11:22 | PCM.DC.BS ---
Discharge Diet: No Restrictions Discharge Activity: May Not Drive - for 2-3 days or while taking narcotic pain meds. May shower in (days): 1 Lifting Restrictions: 10 pounds for 1 week. Call your doctor if your incision/area has: Continuous Slow Oozing, Sudden Increased Bleeding Call your doctor if you observe: Fever of 101 or Higher Suture Line Care: Avoid Pulling/Pushing, Avoid Pinching/Bending Remove Dressing in (days):: 1 - Remove bulky dressing tomorrow. May leave any opsite dressing for 3-4 days. Keep dressing in place until your follow-up appointment. Additional Dressing/Incision Instructions:: Remove bulky dressing tomorrow. May leave any opsite dressing for 3-4 days. You may then remove your plastic OpSite dressings and leave the Steri-Strips on for an additional 5 days Allergies/Adverse Reactions: Allergies adhesive tape Allergy (Severe, Verified 07/01/18 12:18) Unknown baclofen Allergy (Severe, Verified 07/01/18 12:18) Unknown codeine Allergy (Severe, Verified 07/01/18 12:18) Unknown morphine Allergy (Severe, Verified 07/01/18 12:18) Unknown Penicillins Allergy (Severe, Verified 07/01/18 12:18) Unknown Medications to take at Discharge coenzyme Q10 30 mg capsule 30 mg PO QDAY 05/12/17 dextran 70-hypromellose (PF) 0.1 %-0.3 % eye drops in a dropperette 1 drp OPHTHALMIC 6XD ea 05/12/17 diltiazem ER 180 mg capsule,24 hr,extended release 180 mg PO QDAY cap 05/12/17 flaxseed oil 1,000 mg capsule 1,000 mg PO QDAY 05/12/17 rosuvastatin 10 mg tablet 10 mg PO QDAY 05/12/17 L.acidoph,Paracasei, B.lactis [Probiotic] 1 each PO DAILY 07/01/18 Primary Care Physician: Eloise Palma MD [Primary Care Provider] - Please Follow Up With: Rahul Tucker MD When: Office appt. [phone] Approximately one week please
--- NOTE | 2018-07-08 11:25 | DCINST_ITS ---
Discharge Diet: No Restrictions Discharge Activity: May Not Drive - for 2-3 days or while taking narcotic pain meds. May shower in (days): 1 Lifting Restrictions: 10 pounds for 1 week. Call your doctor if your incision/area has: Continuous Slow Oozing, Sudden In creased Bleeding Call your doctor if you observe: Fever of 101 or Higher Suture Line Care: Avoid Pulling/Pushing, Avoid Pinching/Bending Remove Dressing in (days):: 1 - Remove bulky dressing tomorrow. May leave any opsite dressing for 3-4 days. Keep dressing in place until your follow-up appointment. Additional Dressing/Incision Instructions:: Remove bulky dressing tomorrow. May leave any opsite dressing for 3-4 days. You may then remove your plastic OpSite dressings and leave the Steri-Strips on for an additional 5 days Allergies/Adverse Reactions: Allergies adhesive tape Allergy (Severe, Verified 07/01/18 12:18) Unknown baclofen Allergy (Severe, Verified 07/01/18 12:18) Unknown codeine Allergy (Severe, Verified 07/01/18 12:18) Unknown morphine Allergy (Severe, Verified 07/01/18 12:18) Unknown Penicillins Allergy (Severe, Verified 07/01/18 12:18) Unknown Medications to take at Discharge coenzyme Q10 30 mg capsule 30 mg PO QDAY 05/12/17 dextran 70-hypromellose (PF) 0.1 %-0.3 % eye drops in a dropperette 1 drp OPHTHALMIC 6XD ea 05/12/17 diltiazem ER 180 mg capsule,24 hr,extended release 180 mg PO QDAY cap 05/12/17 flaxseed oil 1,000 mg capsule 1,000 mg PO QDAY 05/12/17 rosuvastatin 10 mg tablet 10 mg PO QDAY 05/12/17 L.acidoph,Paracasei, B.lactis [Probiotic] 1 each PO DAILY 07/01/18 Primary Care Physician: Eloise Palma MD [Primary Care Provider] - Please Follow Up With: Rahul Tucker MD When: Office appt. [phone] Approximately one week please
[2018-07-08] MEDS: Isosulfan Blue 1% 5 ML Vial (11:39)
[2018-07-08] MEDS: Bupivacaine Mpf 0.5% 30 ML VIAL (12:35)
[2018-07-08 13:10] VITALS: BP 101/45; BP 152/67; PULSE 73; RESP 16; TEMP 36.5; O2SAT 94
[2018-07-08 13:15] VITALS: BP 108/50; BP 152/67; PULSE 67; RESP 16; O2SAT 92
[2018-07-08 13:30] VITALS: BP 119/66; BP 152/67; PULSE 69; RESP 16; TEMP 36.8; O2SAT 98
[2018-07-08 14:56] VITALS: BP 137/67; BP 152/67; PULSE 60; RESP 16; TEMP 36.2; O2SAT 99
== END 2018-07-08 15:20 | disposition home or self-care (01) ==
LOC: SDC 08:18 → AC 08:19
PROVIDERS: Family Provider Internal Medicine; PCP Internal Medicine; Referring Provider Surgery; Visit Provider Surgery
PROC: (CPT 19301; principal; 2018-07-08 11:15)
DX: C50.212 Malignant neoplasm of upper-inner quadrant of left female breast (principal); Z17.0 Estrogen receptor positive status [ER+]; E78.00 Pure hypercholesterolemia, unspecified; I10 Essential (primary) hypertension; Z79.899 Other long term (current) drug therapy; J45.909 Unspecified asthma, uncomplicated; K58.9 Irritable bowel syndrome, unspecified; M19.90 Unspecified osteoarthritis, unspecified site; Z80.3 Family history of malignant neoplasm of breast
CPT/HCPCS: 19301; 38525; 19281; 38792; 71046; 76098; 80053; 85027; 88305; 88307; 88331; 88332; 88341; 88342; 93005; A9541; J7120; A4216; J2405; Q9968

== ENCOUNTER 2019-04-22 09:27 | Day surgery (SDC) | payer MEDICARE, OTHER, SELFPAY ==
--- NOTE | 2019-04-04 03:02 | HP_ITS ---
Intake Vital Signs 04/04/19 Height 5 ft 2 in 04/04/19 Weight: 132 lb 04/04/19 BMI 24.1 04/04/19 BP 173/76 H 04/04/19 Blood Pressure Location Rt brachial 04/04/19 Position Sitting 04/04/19 Respiration 16 04/04/19 Pulse 76 04/04/19 Pulse Source Monitor 04/04/19 Temp 98.5 F 04/04/19 Temp Source Oral 04/04/19 Pulse Oximetry (%) 97 04/04/19 Oxygen Delivery Method room air Intake Visit Reasons: Colonoscopy Chief Complaint: recheck left lumpectomy Rotating Equipment Engineer Required: No Is patient in pain?: No Allergies adhesive tape Allergy (Severe, Verified 04/04/19 14:23) Unknown baclofen Allergy (Severe, Verified 04/04/19 14:23) Unknown codeine Allergy (Severe, Verified 04/04/19 14:23) Unknown morphine Allergy (Severe, Verified 04/04/19 14:23) Unknown Penicillins Allergy (Severe, Verified 04/04/19 14:23) Unknown Medications coenzyme Q10 30 mg capsule 30 mg PO QDAY 05/12/17 [History Confirmed 04/04/19] dextran 70-hypromellose (PF) 0.1 %-0.3 % eye drops in a dropperette 1 drp OPHTHALMIC 6XD ea 05/12/17 [History Confirmed 04/04/19] diltiazem HCl 180 mg capsule,24 hr,extended release 180 mg PO QDAY cap 05/12/17 [History Confirmed 04/04/19] flaxseed oil 1,000 mg capsule 1,000 mg PO QDAY 05/12/17 [History Confirmed 04/04/19] rosuvastatin 10 mg tablet 10 mg PO QDAY 05/12/17 [History Confirmed 04/04/19] L.acidoph,Paracasei, B.lactis [Probiotic] 1 ea PO DAILY 07/01/18 [History Confirmed 04/04/19] PFSH Medical History (Updated 04/04/19 @ 15:01 by Rahul Tucker MD) Melanoma in situ of face (Acute) Family history of colon cancer (Acute) Personal history of colonic polyps (Acute) Breast cancer, left (Acute) Breast cancer, left (Acute) Abnormal mammogram of left breast (Acute) Abnormal mammogram of left breast (Acute) HTN (hypertension) (Chronic) Anxiety (Acute) Arthritis (Acute) Asthma (Acute) High cholesterol (Acute) Hives (Acute) IBS (irritable bowel syndrome) (Acute) Osteoarthritis (Acute) Pneumonia (Acute) Skin cancer (Acute) Surgical History (Updated 04/04/19 @ 14:22 by Ivory Fuentes) History of skin graft (Acute) Hx of melanoma in situ (Acute) S/P lumpectomy, left breast (Acute ~07/08/18) History of basal cell carcinoma (BCC) excision (Acute) Status post bilateral total hip replacement (Acute) Family History Father Colon cancer Mother Cancer Melanoma ALS (amyotrophic lateral sclerosis) Social History (Updated 04/04/19 @ 15:48 by Rahul Tucker MD) Smoking Status: Never smoker second hand exposure: No alcohol intake: never substance use type: does not use HPI HPI HPI: JORDAN LAMBERT, is a 78 F who presents to the office today for HPI HPI Surgical H&P: Yes HPI: JORDAN LAMBERT, is a 78 F who presents to the office today for surgical consultation regarding a colonoscopy and possible a upper endoscopy. The patient's primary care physician Dr. Eloise Palma from which she is referred. Her oncologist is Dr. Simon Ochoa and Dr. Bharti Lopez. 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 The patient's most recent colonoscopy was January 2016. A 4 mm polyp was seen in the ascending colon and a 6 mm polyp in the mid transverse colon. Both were tubular adenomas. There is now some concern regarding her melanoma. She is being referred for surveillance colonoscopy. In addition the patient is questioning whether she needs a esophagogastroduodenoscopy. She was apparently quite anxious throughout her plastic surgical procedures. She did take some [id number] acid reducing medication but now that has improved. She denies personal history of peptic ulcer disease. She has never previously had an upper endoscopy. Her family history is notable for first-degree relative parent who of colon cancer. ROS General General: Yes breast cancer; no weight change, appetite, fatigue, colon cancer or weakness HEENT HEENT: No difficulty swallowing, eye injury, eye surgery, swollen glands or hoarseness Endo Endocrine: No thyroid disease, diabetes mellitus, thyroid cancer, Hair loss, heat intolerance or cold intolerance Skin Skin: Yes changing moles; no rash Musc Musculoskeletal: Yes arthritis; no back problems, rheumatoid arthritis, gout or joint pain Cardio Cardiovascular: Yes high blood pressure; no murmur, pacemaker, heart disease, atrial fibrillation, heart attack, heart stent, palpitations, shortness of breat with exertion or chest pain Psych Psychiatric: No depression, anxiety or hearing voices Resp Respiratory: No shortness of breath, No sleep apnea, No cough, No COPD, Yes asthma, No emphysema, No wheezing Gastro Gastrointestinal: No abdominal pain, No nausea or vomiting, No diarrhea, No constipation, No blood in stool, Yes acid reflux, Yes hemorrhoids, No ulcers, No gallbladder problem, No black,tarry stools Ghulam Hematologic: No blood thinners, No blood disorders, No bleeding, No anemia, No blood clots Neuro Neurologic: No weakness Exam HENMT Other: Nasal reconstruction, slowly healing nasal tip flap and forehead. Significant swelling still noted Resp Effort & Inspection: normal respiratory effort Auscultation: clear to auscultation bilaterally Cardio Rate: regular rate Rhythm: regular rhythm Heart Sounds: no murmurs GI Palpation: soft, no hepatosplenomegaly Extrem General: no calf tenderness bilaterally Psych Affect: normal affect Assessment & Plan Problems 1. Personal history of colonic polyps Z86.010 2. Family history of colon cancer Z80.0 3. Melanoma in situ of face D03.30 Plan I recommend to the patient a colonoscopy with possible biopsy or polypectomy is indicated. She is aware of the technique, benefit, risk of alternatives. We will check with both Dr. Palma and Dr. Ochoa regarding their input on a esophagogastroduodenoscopy and then schedule as pertinent. She has had an opportunity to ask and have questions answered. We will schedule and proceed as noted. Cc: Dr. Eloise Palma and Dr. Simon Tucker M.D., F.A.C.S. Coding Level of Care Code Off vis,est,level 3 Diagnoses Personal history of colonic polyps Z86.010 Family history of colon cancer Z80.0 Melanoma in situ of face D03.30 04/04/19 1548 <Electronically signed by Rahul hodge MD> Date _ Rahul Tucker MD I have re-examined the patient. There are no clinical changes since date of exam.
[2019-04-04 14:25] VITALS: BMI 24.5
[2019-04-22] VITALS (7 sets, daily range): BP systolic 110–153; BP diastolic 46–66; PULSE 65–82; RESP 16; TEMP 36.3–36.8; O2SAT 98–100; BMI 23.8
[2019-04-22] MEDS: Lactated Ringers 1,000 ML 100 ML IV (10:00)
--- NOTE | 2019-04-22 10:30 | COLBX_PTH ---
PATIENT: JORDAN LAMBERT LOC: EN U#:[id number] AGE/SX: 78/F ROOM: RE04/22/[address]: Dr. Rahul Tucker MD : 1940 BED: DIS: 04/22/2019 SPEC #: [id number] RECD: 04/22/19 11:49 STATUS: TI MARTINEZ #: [id number] EDIN: 04/22/19 10:[address]: Rahul Tucker DEPT: SURGICAL PATHOLOGY RECD BY: Adela Reyes ENTERED: 04/22/19 12:12 SP TYPE: COLON BX OTHR DR: Dr. Eloise Palma MD Tissues: Ascending colon Procedures: Surgery Specimen Level IV HEADER OPERATION: Colonoscopy (MAC) PRE-OP DIAGNOSIS: History of colon polyps TISSUE SUBMITTED: Biopsy of ascending colon polyp MICROSCOPIC DIAGNOSIS Ascending colon polyp, biopsy: Fragments of tubular adenoma. SJ:marcus 3/2/20 MICROSCOPIC DESCRIPTION Slides are reviewed. GROSS DESCRIPTION Received in fixative is one container labeled with the patient's name and designated biopsy of ascending colon polyp. The specimen consists of three irregular fragments of light jacinto soft tissue that in aggregate measure 1 x 0.2 x 0.1 cm. The specimen is totally submitted in one cassette. / SJ:marcus 04/22/19 TC:1 CPT: 38243
--- NOTE | 2019-04-22 11:11 | OP.COLON_ITS ---
Patient Name: Jessica Jaquez Procedure Date: 04/22/2019 10:41 AM Date of : 1940 Age: 78 Procedure: Colonoscopy Indications: High risk colon cancer surveillance: Personal history of colonic polyps Providers: Rahul Tucker MD Referring MD: Eloise Palma Medicines: See the Anesthesia note for documentation of the administered medications Patient Profile: Last Colonoscopy: January 2016. Complications: No immediate complications. Procedure: Pre-Anesthesia Assessment: - Prior to the procedure, a History and Physical was performed, and patient medications and allergies were reviewed. The patient's tolerance of previous anesthesia was also reviewed. The risks and benefits of the procedure and the sedation options and risks were discussed with the patient. All questions were answered, and informed consent was obtained. Prior Anticoagulants: The patient has taken no previous anticoagulant or antiplatelet agents. ASA Grade Assessment: II - A patient with mild systemic disease. After reviewing the risks and benefits, the patient was deemed in satisfactory condition to undergo the procedure. After I obtained informed consent, the scope was passed under direct vision. Throughout the procedure, the patient's blood pressure, pulse, and oxygen saturations were monitored continuously. The Colonoscope was introduced through the anus and advanced to the cecum, identified by appendiceal orifice and ileocecal valve. The colonoscopy was performed with difficulty due to multiple diverticula in the colon. The patient tolerated the procedure well. The quality of the bowel preparation was good. The ileocecal valve and the appendiceal orifice were photographed. Scope In: 10:50:48 AM Scope Withdrawal Time 0 hours 8 minutes 34 seconds Scope Out: 11:06:44 AM Total Procedure Duration Time 0 hours 15 minutes 56 seconds Findings: Hemorrhoids were found on perianal exam. A 4 mm polyp was found in the mid ascending colon. The polyp was sessile. The polyp was removed with a cold biopsy forceps. Resection and retrieval were complete. Multiple diverticula were found in the sigmoid colon and descending colon. The exam was otherwise without abnormality. Impression: - Hemorrhoids found on perianal exam. - One 4 mm polyp in the mid ascending colon, removed with a cold biopsy forceps. Resected and retrieved. - Diverticulosis in the sigmoid colon and in the descending colon. - The examination was otherwise normal. Recommendation: - Discharge patient to home. - Resume previous diet. - Continue present medications. - Repeat colonoscopy is not recommended due to current age (66 years or older) for surveillance. - Telephone my office for pathology results in 1 week. Procedure Code(s): --- Professional --- 99933, Colonoscopy, flexible; with biopsy, single or multiple Diagnosis Code(s): --- Professional --- Z86.010, Personal history of colonic polyps K64.9, Unspecified hemorrhoids D12.2, Benign neoplasm of ascending colon K57.30, Diverticulosis of large intestine without perforation or abscess without bleeding CPT copyright 2017 [employer] [place] [employer]. All rights reserved. The codes documented in this report are preliminary and upon data coder operator review may be revised to meet current compliance requirements. Rahul Tucker MD 04/22/2019 11:11:16 AM This report has been signed electronically. Number of Addenda: 0 Note Initiated On: 04/22/2019 10:41 AM
--- NOTE | 2019-04-22 11:11 | OP.CCLET_ITS ---
04/22/2019 Eloise Palma [address] [place] [address] Re : Colonoscopy procedure for Jessica Viola Dear Dr. Palma This procedure was performed on Monday, April 22, 2019. My impressions and recommendations are as follows: Impressions : - Hemorrhoids found on perianal exam. - One 4 mm polyp in the mid ascending colon, removed with a cold biopsy forceps. Resected and retrieved. - Diverticulosis in the sigmoid colon and in the descending colon. - The examination was otherwise normal. Recommendations : - Discharge patient to home. - Resume previous diet. - Continue present medications. - Repeat colonoscopy is not recommended due to current age (66 years or older) for surveillance. - Telephone my office for pathology results in 1 week. My findings are described in the full procedure note, which is enclosed. If I can be of further assistance, please feel free to contact me at Doctor phone number(s): Work: . Sincerely, Rahul Tucker MD 04/22/2019 11:11:16 AM This report has been signed electronically.
== END 2019-04-22 12:15 | disposition home or self-care (01) ==
LOC: EN 09:27 → AC 09:29
PROVIDERS: PCP Internal Medicine; Referring Provider Internal Medicine; Visit Provider Surgery
PROC: 0DJD8ZZ Inspection of Lower Intestinal Tract, Via Natural or Artificial Opening Endoscopic (ICD-10-PCS; CPT 45378; principal; 2019-04-22 10:25)
DX: D12.2 Benign neoplasm of ascending colon (principal); K64.9 Unspecified hemorrhoids; K57.30 Diverticulosis of large intestine without perforation or abscess without bleeding; Z86.010 Personal history of colon polyps; Z80.0 Family history of malignant neoplasm of digestive organs; I10 Essential (primary) hypertension; M19.90 Unspecified osteoarthritis, unspecified site; J45.909 Unspecified asthma, uncomplicated; E78.00 Pure hypercholesterolemia, unspecified; K58.9 Irritable bowel syndrome, unspecified; Z78.0 Asymptomatic menopausal state; Z85.3 Personal history of malignant neoplasm of breast; Z87.19 Personal history of other diseases of the digestive system; Z87.01 Personal history of pneumonia (recurrent); Z85.828 Personal history of other malignant neoplasm of skin; Z79.899 Other long term (current) drug therapy
CPT/HCPCS: 45380; 88305; J7120; J2405

== ENCOUNTER 2019-05-02 18:53 | Emergency (ER) | payer MEDICARE, OTHER, SELFPAY ==
[2019-04-22 09:45] VITALS: BMI 23.8
[2019-05-02] VITALS (9 sets, daily range): BP systolic 141–178; BP diastolic 57–87; PULSE 66–101; RESP 10–20; TEMP 37.2; O2SAT 87–100; BMI 27.8
--- NOTE | 2019-05-02 19:12 | ED.DCSUM_ITS ---
- ER Visit Summary Date of Service: 05/02/19 Chief Complaint: Atraumatic right hip pain History of Present Illness: The patient is a 78 F history of bilateral hip prostheses. She took a walk today. When she came home she pivoted and had immediate pain in the right hip. She is unable to move it now. Denies any fall or trauma. Physical Examination: Older female in plan right hip pain. Vital signs stable afebrile. H EENT exam unremarkable. It may. Neck nontender. Lungs clear to auscultation. Heart regular rhythm no murmur. Chest wall nontender. Abdomen soft nontender. Normal bowel sounds no peritoneal signs. Extremities pain on palpation right hip. Deformity. Right knee and lower leg nontender neurovascular intact with normal dorsi plantarflexion. Normal sensation. Left lower extremity unremarkable both upper extremities are unremarkable nontender normal range of motion. Neurologically she is awake alert with no focal motor deficits. Test Results: Right hip and pelvis x-rays superior posterior hip dislocation. Multiple views read by myself and radiology. Post reduction x-ray shows a properly reduced prosthetic hip. 3 views. Again read by myself. Emergency Department Course and Treatment: Patient did not currently waiting for pain. Clinically I suspect she is in a dislocated right hip and will need conscious sedation and reduction. Patient was treated with fentanyl IV x2 and Zofran for pain. We discussed with her treatments and she was consciously sedated with propofol. Patient was given a total of 110 mg of propofol. Using traction countertraction and then Captain Oscar technique and appropriate reduction occurred. Patient tolerated procedure well. She woke up after several minutes. Blood pressure remained stable. Treatment Plan: Repeat exam patient is doing well at 2240. She will be discharged home. Immobilizer and follow-up with Dr. Mihai Sanches her orthopedic physician. Disposition: Discharge Impression: Acute right hip dislocation History of prior hip prosthesis Conscious sedation by ER Hip dislocation reduction by ER This note was generated with [employer] dictation software. It may contain incorrect words, spelling, and punctuation that were not noted in review of the chart prior to signing ED Disposition - Plan for ED Patient: Referrals: Eloise Palma MD [Primary Care Provider] -
[2019-05-02] MEDS: Ondansetron 4 MG/2 ML Vial IV (19:28)
[2019-05-02] MEDS: fentaNYL 100 MCG/2 ML Ampul 25 MCG IV ×2 (19:28→20:56)
--- NOTE | 2019-05-02 19:55 | RAD_ITS ---
HISTORY: Right hip pain after fall. AP pelvis and 2 views of the right hip. Findings: Bilateral hip arthroplasties are present. The right hip arthroplasty has dislocated. The humeral head is superior and posterior relative to the acetabulum. The left hip is in adequate alignment. Sclerosis at the pubic symphysis. Degenerative disc disease. Facet arthropathy. Pelvic phleboliths. Bowel gas pattern is normal. Multiple enthesophytes about the pelvis. RAD/HIP, UNI W/ Pelvis 2-3 Views IMPRESSION: Superior posterior right prosthetic hip dislocation. at 2021 Reported and signed by: Ayush Moore MD Electronically Signed: Ayush Moore MD at 20:20 EDT Tel , Service support ,
[2019-05-02] MEDS: Propofol 200 MG/20 ML Vial 60 MG IV BOLUS (21:21)
[2019-05-02] MEDS: Propofol 200 MG/20 ML Vial 50 MG IV BOLUS (21:23)
--- NOTE | 2019-05-02 21:55 | RAD_ITS ---
HISTORY: Post hip reduction. Exam is an AP of the pelvis comment 2 views of the right hip. Comparison study is from about 2 hours earlier. Findings: The right hip prosthesis has been reduced. A Moya catheter remains. The left hip remains in adequate alignment. RAD/HIP, UNI W/ Pelvis 2-3 Views IMPRESSION: Reduction of dislocated right prosthetic hip. No evidence of fracture or dislocation or loosening. at 2244 Reported and signed by: Ayush Moore MD Electronically Signed: Ayush Moore MD at 22:43 EDT Tel , Service support ,
--- NOTE | 2019-05-02 22:51 | ED.DEP ---
ED Disposition - Plan for ED Patient: Disposition: Home or Assisted Living Instructions: HIP DISLOCATION, Traumatic, (Reduced) Referrals: Jj Sanches MD [STAFF PHYSICIAN] - 1 Week Additional Instructions: Leave the knee dislocation on to prevent you from re-dislocating your hip. Call follow-up with the orthopedic physician.
== END 2019-05-02 23:40 | disposition home or self-care (01) ==
PROVIDERS: Emergency Provider Emergency Medicine; PCP Internal Medicine
DX: T84.020A Dislocation of internal right hip prosthesis, initial encounter (principal); Y79.2 Prosthetic and other implants, materials and accessory orthopedic devices associated with adverse incidents; I10 Essential (primary) hypertension; Z96.643 Presence of artificial hip joint, bilateral; Z79.899 Other long term (current) drug therapy
CPT/HCPCS: 27265; 73502; 96374; 96375; 96376; 99285; J7030; A4216; J2405

== ENCOUNTER 2019-06-30 13:07 | Emergency (ER) | payer MEDICARE, OTHER, SELFPAY ==
[2019-05-02 18:54] VITALS: BMI 27.8
[2019-06-30 13:09] VITALS: BP 176/78; PULSE 85; PULSE 94; RESP 17; TEMP 37.1; O2SAT 97; BMI 23.1
--- NOTE | 2019-06-30 13:32 | US_ITS ---
STUDY: ABDOMINAL ULTRASOUND - RIGHT UPPER QUADRANT REASON FOR VISIT: Female, 78 years old JAUNDICE DULL ACHE MIDLINE LAST ATE AN HOUR AGO TECHNIQUE: Ultrasound evaluation of the right upper quadrant was performed with real-time and static epperson-scale imaging. TECHNICAL QUALITY: Adequate. COMPARISON: None. FINDINGS: Liver: The liver measures 17.2 cm. There is normal echogenicity of the liver. The bile ducts are dilated. There is hepatic color flow. The direction of portal flow is hepatopetal. There is no demonstrated mass lesion. Gallbladder: There is a distended gallbladder. The gallbladder wall is thickened and measures 3.8 mm. There is a positive sonographic Hobbs''s sign. There is no pericholecystic fluid. Sludge and tiny gallstones are seen in the dependent portion of the gallbladder. Common Bile Duct (C.B.D.): The common bile duct is dilated and measures 19.4 mm. Pancreas: There is dilatation of the pancreatic duct. Right Kidney: Normal size of the right kidney. The right kidney measures 11.3 cm x 5.9 cm x 4.0 cm. Normal renal cortex. The right cortex measures 1.3 cm. There is no demonstrated renal mass or cyst. There is no right hydronephrosis. US/Gallbladder IMPRESSION: Dilated intrahepatic attic biliary ducts. Dilated common bile duct. Sludge and a small gallstone seen in the gallbladder. Dilated pancreatic duct. A lesion in the ampulla of Vater should be ruled out. Correlation with the CT scan is recommended. Electronically Signed: Anthony Ashton, at 14:56 EDT , Service support ,
--- NOTE | 2019-06-30 13:32 | CT_ITS ---
STUDY: CT ABDOMEN AND PELVIS WITH CONTRAST REASON FOR EXAM: Female, 78 years old. JAUNDICE, ELEV D DIMER, INCREASED LFT''S, HTN, BREAST CA -LUMPECTOMY, MELANOMA RADIATION DOSAGE (If Supplied By Facility): CTDIvol = ( 9.86 ) mGy, DLP = ( 540.64 ) mGycm TECHNIQUE: Transaxial images were obtained from the dome of the diaphragm to the symphysis pubis without oral contrast. Oral and amp; IV Gastrografin and amp; 100mL Isovue-300 was administered. Sagittal and coronal images were reconstructed. Individualized dose optimization techniques were used for this CT. COMPARISON: Comparison is made with prior sonogram of the right upper quadrant done earlier today. FINDINGS: The visualized lung bases are unremarkable. Coronary artery calcification. Marked degree of intrahepatic biliary ductal dilatation. There is a calcified granuloma in the left lobe of the liver measuring 7.5 mm. There is also evidence of a 1.9 cm x 1.57 m cyst in the left lobe of liver. Marked degree of the dilatation of the common bile duct down to the level of the ampulla of Vater. The gallbladder is distended. Normal spleen. Dilated pancreatic duct. There is evidence of a 2.9 cm x 3.4 cm soft tissue mass in the head of the pancreas extending into the uncinate process. This abuts the lateral aspect of the superior mesenteric vein. Normal bilateral adrenal glands. Tiny cysts in the right kidney. There is a 3.3 cm x 2.3 cm cyst in the inferior lateral portion of the left kidney. Normal visualized stomach. Normal small intestine. There are multiple colonic diverticula consistent with diverticulosis. The appendix is visualized and appears normal. There is diffuse atherosclerotic calcification of the abdominal aorta, without a demonstrated aneurysm. Normal inferior vena cava. Normal retroperitoneum. Normal urinary bladder. Normal abdominal wall. There are diffuse degenerative changes of the visualized lumbar spine. Minimal anterior listhesis of L4 on L5. Bilateral hip replacement. CT/Abdomen/Pelvis WITH Contrast IMPRESSION: Pancreatic mass in the head and uncinate process of the pancreas with a marked degree of dilatation of the intrahepatic biliary ducts as well as the common bile duct and pancreatic duct. Distention of the gallbladder. Electronically Signed: Anthony Ashton, at 15:56 EDT , Service support ,
[2019-06-30 13:43] LABS: Absolute Lymphocyte Count 0.75 X10^3/uL (0.83-4.51); Absolute Neutrophil Count 6.1 X10^3/uL (2.0-7.7); Basophil# 0.03 X10^3/uL; Basophil% 0.4 % (0-1); Eosinophil# 0.03 X10^3/uL; Eosinophils% 0.4 % (0-5); Hematocrit 36.5 % (37-47); Hemoglobin 12.3 g/dL (12.0-15.0); Lymphocyte # 0.75 X10^3/ul (4.0); Lymphocyte % 9.9 % (19-41); Mean Corp Hgb Conc 33.7 g/dL (32-36); Mean Corpuscular Hgb 30.9 pg (27.0-32.0); Mean Corpuscular Volume 91.7 fL (81-99); Mean Platelet Vol. 10.2 fl (6.2-12.0); Monocyte# 0.63 X10^3/uL; Monocyte% 8.3 % (0-10); NRBC Flagged by Analyzer 0 % (0-5); Neutrophil # 6.14 X10^3/uL (2.7-7.7); Neutrophil % 80.7 % (47-70); Platelet Count 211 K/mm3 (150-450); RBC Distribution Width CV 14.6 % (11.6-14.6); Red Blood Count 3.98 M/mm3 (4.2-5.4); White Blood Count 7.6 K/mm3 (4.4-11.0)
[2019-06-30] MEDS: 0.9% Normal Saline 1,000 ML 125 ML IV (13:47)
--- NOTE | 2019-06-30 14:15 | ED.DCSUM_ITS ---
- ER Visit Summary Date of Service: 06/30/19 Chief Complaint: Jaundice History of Present Illness: The patient is a [address] Palma. She reports that she has jaundice that began 2 to 3 weeks ago. She reports that she has had upper abdominal pain over the same timeframe. States is an intermittent pain that lasts hours at a time. She describes it as aching. It is 5 out of 10 at worst and 2 out of 10 currently. Is worsened by food. States that this does not have to be fatty food. Is worsened by any food. Is relieved by nothing. She denies any nausea, vomiting, or diarrhea. 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 Her urine is been darker than usual. However, she denies any dysuria or frequency. Patient believes that the jaundice is due to Letrozole which she has been on for 5 months. She has not taken this for the past 4 days. Physical Examination: Vitals: Stable. Afebrile. General: Well-nourished and well-developed. Head: Normocephalic atraumatic. Neck: Supple, no lymphadenopathy. No JVD. Nontender. Cardiovascular: Regular rate and rhythm. No murmurs. Respiratory: No respiratory distress. Clear to auscultation bilaterally. Abdominal: Soft, mild right upper quadrant and epigastric tenderness to palpat ion, nondistended, normal bowel sounds. No guarding, rebound, or peritoneal signs. Back: Nontender. Extremities: Nontender, no edema. Skin: Jaundiced. Scleral icterus. Neurologic: Alert and oriented ?3. Cranial nerves II through XII are intact. Normal strength and sensation. Psych: Normal affect. Test Results: CBC shows hematocrit of 36.5, segmented neutrophils 80, lympho cytes of 10. Chem-7 shows a potassium of 2.6 and glucose of 207. LFTs show total bili of 9.3 with a direct bili 7.73. Alk phos is 453, ALT is 288, AST is 208. Lipase is 837. Clinical Impression(s) from Imaging Studies Abdomen/Pelvis CT 06/30/19 13:32 IMPRESSION: Pancreatic mass in the head and uncinate process of the pancreas with a marked degree of dilatation of the intrahepatic biliary ducts as well as the common bile duct and pancreatic duct. Distention of the gallbladder. Electronically Signed: Anthony Ashton, at 15:56 EDT , Service support , Gallbladder Ultrasound 06/30/19 13:32 IMPRESSION: Dilated intrahepatic attic biliary ducts. Dilated common bile duct. Sludge and a small gallstone seen in the gallbladder. Dilated pancreatic duct. A lesion in the ampulla of Vater should be ruled out. Correlation with the CT scan is recommended. Electronically Signed: Anthony Ashton, at 14:56 EDT , Service support , Emergency Department Course and Treatment: Patient had an IV placed. She was given liter normal saline. She refused pain or nausea medications. She is resting comfortably. Treatment Plan: The patient was discussed with Dr. Izaguirre who has reviewed the imaging and asked that she be transferred to a tertiary care center. Patient was then discussed with Dr. Alonzo and will be transferred to [facility] for further evaluation and treatment. Disposition: Transferred Impression: 1. Pancreatic cancer. 2. Hypokalemia. 3. Jaundice. This note was generated with [employer] dictation software. It may contain incorrect words, spelling, and punctuation that were not noted in review of the chart prior to signing ED Disposition - Plan for ED Patient: Referrals: Eloise Palma MD [Primary Care Provider] -
[2019-06-30 14:17] LABS: AST(SGOT) 208 U/L (15-37); Alanine Aminotransfer ALT/SGPT 288 U/L (13-56); Albumin, Serum 3.3 g/dL (3.2-5.0); Alkaline Phosphatase 453 U/L (45-117); Anion Gap 8 (5-15); BUN 7 mg/dL (7-18); Bilirubin, Direct 7.73 mg/dL (0.00-0.30); Calcium,Total 9.5 mg/dL (8.5-10.1); Chloride 105 mmol/L (98-107); Creatinine, Serum 0.64 mg/dL (0.55-1.02); EST Glomerular Filtration Rate 96 mL/min (>60); Est Glom Filt Rate - Afr Amer 116 mL/min (>60); Estimated Creatinine Clearance 36.08 ml/min; Globulin 3.6 g/dL (2.2-4.2); Glucose 207 mg/dL (74-106); Lipase 837 U/L (73-393); Potassium 2.6 mmol/L (3.5-5.1); Protein, Total 6.9 g/dL (6.4-8.2); Sodium Level 142 mmol/L (136-145)
[2019-06-30 16:24] VITALS: BP 176/80; O2SAT 97
[2019-06-30 16:53] VITALS: BP 186/71; PULSE 79; RESP 14
--- NOTE | 2019-06-30 17:02 | ED.RN ---
REPORT CALLED TO CHAIM
--- NOTE | 2019-06-30 17:08 | NURSING ---
[facility] G100 BED 35 NURSE TO NURSE [phone] WAHL
--- NOTE | 2019-06-30 17:19 | NURSING ---
CALLED [facility] FOR TRANSPORT. ETA IS 30 TO 60 MIN ETA
== END 2019-06-30 18:55 | disposition short-term general hospital (02) ==
LOC: ED 15:29
PROVIDERS: Emergency Provider Emergency Medicine; PCP Internal Medicine
DX: C25.9 Malignant neoplasm of pancreas, unspecified (principal); E87.6 Hypokalemia; R17 Unspecified jaundice; I10 Essential (primary) hypertension; E78.00 Pure hypercholesterolemia, unspecified; Z85.3 Personal history of malignant neoplasm of breast; Z85.820 Personal history of malignant melanoma of skin; Z79.899 Other long term (current) drug therapy
CPT/HCPCS: 74177; 76705; 80048; 80076; 83690; 85025; 96360; 96361; 99284; J7030; Q9967; A4216

== ENCOUNTER → 2019-08-02 13:21 | Outpatient (CLI) | payer MEDICARE, OTHER, SELFPAY ==
[2019-05-02 18:54] VITALS: BMI 27.8
--- NOTE | 2019-08-02 13:37 | BD_ITS ---
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 COMPARISON: Comparison is made with prior examination dated January 20, 2017. FINDINGS: Right Forearm: g/cm2 (0.671) / T-score (-2.4) / Z-score (0.2) Left Forearm: g/cm2 (0.664) / T-score (-2.5) / Z-score (0.2) BD/Dexa Bone Density/Append Skel IMPRESSION: The patient is considered osteopenic as outlined below according to World Carlos Organization (WHO) criteria with a high fracture risk. There has been worsening of bone density since the previous examination. Reference Information: The T-score is the number of standard deviations above or below the standard which is normal for young adults at their peak bone mineral density. The World Health Organization (WHO) interprets the T-scores as follows: Above -1 Normal bone density Between -1 and -2.5 Osteopenia Equal to / or below -2.5 Osteoporosis As a practical clinical guideline, osteopenia may be graded as follows: Mild -1 through -1.5 Moderate -1.6 through -2.0 Severe -2.1 through -2.4 The Z-score is the number of standard deviations above or below age-matched controls. A Z-score of less than -1.5 would be considered abnormal. References: 1. NIH Osteoporosis and Related Bone Diseases http://www.osteo.org 2. International Society for Clinical Densitometry http://www.iscd.org 3. National Osteoporosis Foundation http://www.nof.org Electronically Signed: Anthony Ashton, at 15:27 EDT , Service support ,
== END ==
PROVIDERS: PCP Internal Medicine; Referring Provider Obstetrics & Gynecology; Visit Provider Obstetrics & Gynecology
DX: Z78.0 Asymptomatic menopausal state (principal)
CPT/HCPCS: 77081

== ENCOUNTER 2020-02-26 01:29 | Emergency (ER) | payer MEDICARE, OTHER, SELFPAY ==
[2020-02-26] VITALS (8 sets, daily range): BP systolic 125–139; BP diastolic 62–86; PULSE 80–97; RESP 17–23; TEMP 36.8–37.2; O2SAT 92–97; BMI 19.5
--- NOTE | 2020-02-26 01:57 | RAD_ITS ---
STUDY: X-RAY CHEST REASON FOR EXAM: Female, 79 years old. Pneumonia x1 week ago, increasing weakness. TECHNIQUE: Single AP portable view of the chest. COMPARISON: 07/05/2018. FINDINGS: There is a right-sided chest port with the tip in the distal SVC. The lungs are normally expanded with interstitial prominence. There is no demonstrated pleural abnormality. Normal size heart. Normal mediastinum and donald. Normal visualized pulmonary arteries. There is atherosclerotic calcification of the aortic arch with tortuosity. There is demineralization of the osseous structures. There is degenerative osteoarthritis of the bilateral shoulders. There is no demonstrated abnormality of the visualized soft tissue structures of the upper abdomen. RAD/Chest 1 View (Portable) IMPRESSION: No acute cardiopulmonary disease. Right-sided chest port as described. Electronically Signed: Tania Freitas MD at 3:20 EST , Service support ,
--- NOTE | 2020-02-26 01:57 | EKG12_ITS ---
Test Reason : WEAKNESS Blood Pressure : / mmHG Vent. Rate : 074 BPM Atrial Rate : 250 BPM P-R Int : 000 ms QRS Dur : 070 ms QT Int : 346 ms P-R-T Axes : 000 049 077 degrees QTc Int : 384 ms Normal sinus rhythm Septal infarct , age undetermined Abnormal ECG Confirmed by MYKE OROZCO, ISABELL ([id number]), newspaper photo editor ALISHA STODDARD ([id number]) on 02/27/2020 8:51:53 AM Referred By: VESNA Confirmed By:ISABELL STRINGER MD
--- NOTE | 2020-02-26 02:01 | ED.DCSUM_ITS ---
History of Present Illness Chief Complaint: Weakness Informant: Patient Onset: Days - 3 Context: Gradual Onset Timing: Continuous Quality: weak Location: all over Current Severity: Severe Maximum Severity: Severe Worsened by: n/a Relieved by: n/a Associated Symptoms: cough, fevers subjective Narrative: Patient currently being treated with chemotherapy for metastatic pancreatic cancer, last chemotherapy was 2 weeks ago, she states she was diagnosed with pneumonia 3 or 4 days ago and started on Levaquin, she has had 4 doses. She is not feeling more dyspneic although she is occasionally mildly dyspneic, just very weak and presents by EMS. Her has been caring for her, helping her stay hydrated, but now is having difficulty getting her up and around because she is so weak. She tested negative for Covid at the time she was diagnosed with pneumonia this past week. She has not had Covid that she knows of. - Past Medical History (1) Anxiety Status: Chronic (2) Arthritis Status: Chronic (3) Asthma Status: Chronic (4) Breast cancer, left Status: Chronic (5) High cholesterol Status: Chronic (6) History of basal cell carcinoma (BCC) excision Status: Chronic (7) Hx of melanoma in situ Status: Chronic Comment: nose- 01/26/19 (8) Hyperlipidemia Status: Chronic (9) IBS (irritable bowel syndrome) Status: Chronic (10) Osteoarthritis Status: Chronic (11) HTN (hypertension) Status: Chronic (12) Pancreatic cancer metastasized to liver Status: Chronic Past Medical History - Allergies and Home Meds Allergies/Adverse Reactions: Allergies adhesive tape Allergy (Severe, Verified 02/26/20 01:36) Unknown baclofen Allergy (Severe, Verified 02/26/20 01:36) Unknown codeine Allergy (Severe, Verified 02/26/20 01:36) Unknown morphine Allergy (Severe, Verified 02/26/20 01:36) Unknown Penicillins Allergy (Severe, Verified 02/26/20 01:36) Unknown Primary Care Physician: Eloise Palma MD [Primary Care Provider] - (And/or oncologist after the weekend) Smoking Status: Never smoker Review of Systems General: Reports: Chills, Fever, Malaise, Subjective. Denies: Sweats Eyes: Denies: Visual changes - bilaterally, Diplopia ENT: Denies: Bilateral ear pain, Rhinorrhea, Sore throat Cardiovascular: Denies: Chest pain, Palpitations Respiratory: Reports: Dyspnea, Cough. Denies: Sputum Gastrointestinal: Denies: Abdominal pain, Nausea, Vomiting, Diarrhea, Melena, Hematochezia Genitourinary: Denies: Dysuria, Hematuria, Frequency Musculoskeletal: Reports: Myalgias, Swelling. Denies: Back pain, Extremity Pain Skin: Denies: Rash, Wounds Neurological: Denies: Headache, Weakness, Numbness Physical Exam Vital Signs/Narrative: Vital Signs Temp Pulse Resp BP Pulse Ox 02/26/20 01:31 98.3 F 97 23 H 139/65 H 92 Inital Vital Signs reviewed: Yes General: Well nourished, Well developed, Cachectic, No Acute Distress Head: Normocephalic, Atraumatic Eyes: Perrl, EOMI ENT: Moist mucous membranes, No rhinorrhea Neck: Supple, Nontender, No lymphadenopathy Cardiovascular: Regular rate, Regular rhythm, Murmur - soft systolic LLSB. Negative for: Tachycardia Respiratory: No distress, CTA bilaterally, Chest nontender Abdomen: Soft, Nontender, Nondistended, Normal bowel sounds Back: Nontender, Normal Inspection. Negative for: CVA tenderness Extremities: Nontender, No edema Skin: Normal color, No rash, No Trauma Neurological: Alert, Oriented x3, Cranial nerves II-XII grossly intact, Normal Strength, Normal Sensation Psychological: Normal affect, Normal Mood Diagnostic/Tx/Re-eval Clinical Impression(s) from Imaging Studies Chest X-Ray 02/26/20 01:57 IMPRESSION: No acute cardiopulmonary disease. Right-sided chest port as described. Electronically Signed: Tania Freitas MD at 3:20 EST , Service support , Laboratory Results 02/26/20 02/26/20 02/26/20 02:00 02:00 02:00 WBC 7.8 RBC 3.34 L Hgb 9.9 L Hct 30.3 L MCV 90.7 MCH 29.6 MCHC 32.7 RDW Std Deviation 47.4 H RDW Coeff of Bernabe 14.4 Plt Count 245 MPV 9.8 Immature Gran % (Auto) 1.300 H Neut % (Auto) 80.3 H Lymph % (Auto) 6.1 L Ocean % (Auto) 10.1 H Eos % (Auto) 1.8 Baso % (Auto) 0.4 Absolute Neuts (auto) 6.2 Absolute Lymphs (auto) 0.47 L Nucleated RBC % 0 Differential Comment SCANNED Platelet Estimate ADEQUATE PT 17.0 H INR 1.4 APTT 39.5 H Sodium 133 L Potassium 3.5 Chloride 98 Carbon Dioxide 29.0 Anion Gap 6 BUN 10 Creatinine 0.46 L Estim Creat Clear Calc 33.29 Est GFR (MDRD) Af Amer 167 Est GFR (MDRD) Non-Af 138 BUN/Creatinine Ratio 21.6 H Glucose 106 Lactic Acid Calcium 8.6 Total Bilirubin 0.50 AST 41 H ALT 26 Alkaline Phosphatase 108 Troponin I < 0.015 Total Protein 5.9 L Albumin 2.1 L Globulin 3.8 Albumin/Globulin Ratio 0.6 L 02/26/20 02:15 WBC RBC Hgb Hct MCV MCH MCHC RDW Std Deviation RDW Coeff of Bernabe Plt Count MPV Immature Gran % (Auto) Neut % (Auto) Lymph % (Auto) Ocean % (Auto) Eos % (Auto) Baso % (Auto) Absolute Neuts (auto) Absolute Lymphs (auto) Nucleated RBC % Differential Comment Platelet Estimate PT INR APTT Sodium Potassium Chloride Carbon Dioxide Anion Gap BUN Creatinine Estim Creat Clear Calc Est GFR (MDRD) Af Amer Est GFR (MDRD) Non-Af BUN/Creatinine Ratio Glucose Lactic Acid 1.2 Calcium Total Bilirubin AST ALT Alkaline Phosphatase Troponin I Total Protein Albumin Globulin Albumin/Globulin Ratio - Rhythm Strip Rhythm Strip: Sinus Rhythm Rate: 74 Ectopy: None - EKG Initial EKG Interpretation: Sinus Rhythm, No Acute Injury Pattern, - - motion/tremor artifact. normal EKG. Prior: Unchanged - Medical Decision Making On my interpretation 1 view chest x-ray shows mild patchy infiltrate in the right base, and mild infiltrate in the right apex. There is hyperexpansion bilaterally. There is no old recent x-ray here/available to compare this with so I do not know if it is improving, worsening, or unchanged, although radiology did not read her x-ray as having anything acute. Her blood work shows nothing acute. She has no neutropenia, her anemia is stable, and her electrolytes and troponin are within normal limits. Urinalysis shows no sign of acute infection. Your Covid test, a returned negative, rapid antigen. She is not hypoxic, not septic, and her vital signs are normal except for her mild tachypnea, but she is in no distress. The patient states that her may be able to continue caring for her. She initially wanted to be admitted tonight for PT/OT evaluation and treatment and strengthening. She is adamant that she does not want to go to short-term rehab. Discussed briefly with hospitalist, who was willing to admit to observation, but states that her work-up would qualify her for no more than that right now, which I agree with. After discussing with the patient, she decides that she would rather go home tonight and not waste her time being admitted. She does not wish to continue chemotherapy. Her oncologist is at [facility], she plans on discussing further after the weekend, states that her is fully capable of continuing to care for her. She feels much better after having a long discussion with me about all of this, and is reassured that she does not have anything acute medically. We discussed reasons to return. ED Disposition - Plan for ED Patient: Disposition: Home or Assisted Living Diagnosis: Generalized weakness, Pneumonia, Pancreatic cancer metastasized to liver Instructions: Oncology: Managing Fatigue, ED Weakness (Uncertain Cause) Referrals: Eloise Palma MD [Primary Care Provider] - (And/or oncologist after the weekend)
[2020-02-26] MEDS: 0.9% Normal Saline 1,000 ML 150 ML IV (02:05)
[2020-02-26 02:17] LABS: Absolute Lymphocyte Count 0.47 X10^3/uL (0.83-4.51); Absolute Neutrophil Count 6.2 X10^3/uL (2.0-7.7); Basophil# 0.03 X10^3/uL; Basophil% 0.4 % (0-1); Eosinophil# 0.14 X10^3/uL; Eosinophils% 1.8 % (0-5); Hematocrit 30.3 % (37-47); Hemoglobin 9.9 g/dL (12.0-15.0); Lymphocyte # 0.47 X10^3/ul (4.0); Lymphocyte % 6.1 % (19-41); Mean Corp Hgb Conc 32.7 g/dL (32-36); Mean Corpuscular Hgb 29.6 pg (27.0-32.0); Mean Corpuscular Volume 90.7 fL (81-99); Mean Platelet Vol. 9.8 fl (6.2-12.0); Monocyte# 0.78 X10^3/uL; Monocyte% 10.1 % (0-10); NRBC Flagged by Analyzer 0 % (0-5); Neutrophil # 6.24 X10^3/uL (2.7-7.7); Neutrophil % 80.3 % (47-70); POSITIVE DIFFERENTIAL YES; Platelet Count 245 K/mm3 (150-450); RBC Distribution Width CV 14.4 % (11.6-14.6); RBC Distribution Width SD 47.4 fl (35.1-43.9); Red Blood Count 3.34 M/mm3 (4.2-5.4); White Blood Count 7.8 K/mm3 (4.4-11.0)
[2020-02-26 02:21] LABS: Differential Indicated SCAN CRITERIA MET
[2020-02-26 02:26] LABS: International Normalized Ratio 1.4
[2020-02-26 02:27] LABS: Partial Thromboplast Time 39.5 Seconds (24.1-36.2)
[2020-02-26 02:31] LABS: ALB/GLOB Ratio 0.6 RATIO (0.9-2.4); AST(SGOT) 41 U/L (15-37); Alanine Aminotransfer ALT/SGPT 26 U/L (13-56); Albumin, Serum 2.1 g/dL (3.2-5.0); Alkaline Phosphatase 108 U/L (45-117); Anion Gap 6 (5-15); BUN 10 mg/dL (7-18); BUN/Creat Ratio 21.6 RATIO (10-20); Calcium,Total 8.6 mg/dL (8.5-10.1); Chloride 98 mmol/L (98-107); Creatinine, Serum 0.46 mg/dL (0.55-1.02); EST Glomerular Filtration Rate 138 mL/min (>60); Est Glom Filt Rate - Afr Amer 167 mL/min (>60); Estimated Creatinine Clearance 33.29 ml/min; Globulin 3.8 g/dL (2.2-4.2); Glucose 106 mg/dL (74-106); Potassium 3.5 mmol/L (3.5-5.1); Protein, Total 5.9 g/dL (6.4-8.2); Sodium Level 133 mmol/L (136-145)
[2020-02-26 02:38] LABS: Differential Comment SCANNED; Platelet Estimate ADEQUATE (ADEQ)
[2020-02-26 03:03] LABS: Lactic Acid 1.2 mmol/L (0.4-1.9)
[2020-02-26 04:25] LABS: Red Blood Cells-Urine 0 SEEN /hpf (0-5); Squamous Epithelial Cells - UA 0 SEEN /hpf (5-10)
[2020-02-26 04:38] LABS: Color, Urine Yellow (Yellow); Glucose, Dipstick Normal (Normal); Ketone-Dipstick 5 mg/dl (Negative); Leukocyte Esterase-Dipstick Negative /ul (Negative); Nitrite-Dipstick Negative (Negative); Occult Blood-Urine Negative /ul (Negative); Protein-Dipstick 15 mg/dl (Negative); Urine Bilirubin Dipstick Negative (Negative); Urine Clarity Clear (Clear); Urine Urobilinogen 1 mg/dl (Normal)
[2020-02-26 04:51] LABS: Amorphous Sediment RARE; Bacteria RARE /hpf (None Seen); Hyaline Cast 0-5 SEEN /lpf (0-5); Mucous, Urine 2+ /hpf (<or=2+); White Blood Cells 0-5 SEEN /hpf (0-5)
== END 2020-02-26 06:37 | disposition home or self-care (01) ==
PROVIDERS: Emergency Provider Emergency Medicine; PCP Internal Medicine
DX: J18.9 Pneumonia, unspecified organism (principal); C25.9 Malignant neoplasm of pancreas, unspecified; C78.7 Secondary malignant neoplasm of liver and intrahepatic bile duct; I10 Essential (primary) hypertension; K58.9 Irritable bowel syndrome, unspecified; M19.90 Unspecified osteoarthritis, unspecified site; J45.909 Unspecified asthma, uncomplicated; Z85.3 Personal history of malignant neoplasm of breast; Z85.828 Personal history of other malignant neoplasm of skin; Z85.820 Personal history of malignant melanoma of skin; Z79.899 Other long term (current) drug therapy
CPT/HCPCS: 71045; 80053; 81001; 83605; 84484; 85025; 85610; 85730; 87040; 87086; 87426; 93005; 96360; 96361; 99285; J7030; A4216